=== PATIENT | female | born 1940 | race Caucasian/White ===

== ENCOUNTER 2022-07-30 11:46 | Emergency (ER) | payer MEDICARE, SELFPAY ==
[2022-07-30] VITALS (11 sets, daily range): BP systolic 153–197; BP diastolic 76–88; PULSE 112; RESP 20; TEMP 36.8; O2SAT 96–98; BMI 23.7
--- NOTE | 2022-07-30 11:57 | W.ED.ABDPA2 ---
HPI - Abdominal Pain General: Chief Complaint: Abdominal Pain Stated Complaint: low abd pains Time Seen by Provider: 07/30/22 11:56 Source: patient Mode of arrival: ambulatory History of Present Illness: 81-year-old female presents emergency room. Initially she is complaining of her hernia in the left inguinal region is worse when she stands up better when she lays down. In addition to that she is complaining of some moderate dysuria. After we examined her for the hernia and found it to be easily reducible she also stated she had hives although when she lowered her jeans to show us where the hives were at there were no hives present she said they must of cleared up. She has not had any vomiting or diarrhea her dysuria is mild and intermittent. MD elicited complaint: abdominal pain Onset (ago): day(s) (2) Location: None Severity: mild Quality: cramping Exacerbating factors: nothing Relieving factors: nothing Associated Symptoms: Reports no associated symptoms and dysuria; Denies anorexia, belching, bloating, change in bowel habits, change in stool character, chills, coffee ground emesis, constipation, GI cramping, diarrhea, dyspepsia, excessive flatus, fever(s), heartburn, hematochezia, hematuria, hematemesis, fecal incontinence, loose stools, melena, nausea, poor appetite, syncope and vomiting Review of Systems Const: Denies: fever(s), chills, fatigue or malaise ENMT: Denies: throat pain, ear or mastoid pain, nasal discharge or nasal congestion Card: Denies: chest pain, palpitations, irregular heart rhythm, edema, swelling of feet/ankles or syncope Resp: Denies: dyspnea, productive cough or non-productive cough GI: Reports: abdominal pain; Denies: nausea, vomiting, hematemesis, coffee ground emesis, heartburn, diarrhea, constipation, bloating, GI cramping, belching, excessive flatus, fecal incontinence, change in bowel habits, change in stool character, hematochezia or melena : Reports: dysuria and urinary frequency; Denies: hematuria Skin/Breast: Denies: rash or pruritus Physical Exam Const: GENERAL APPEARANCE: cooperative and comfortable ORIENTATION/CONSCIOUSNESS: Yes awake, Yes oriented to person, Yes oriented to place and Yes oriented to time HENMT: COMMON NORMALS: normocephalic, atraumatic and hearing grossly normal bilaterally HEAD & SCALP: normocephalic and atraumatic Resp: COMMON NORMALS: normal respiratory effort, No retractions, No use of accessory muscles and clear to auscultation bilaterally AUSCULTATION: clear to auscultation bilaterally Cardio: COMMON NORMALS: regular rate, regular rhythm and No murmurs present (Cardio) RATE: regular rate RHYTHM: regular rhythm GI: COMMON NORMALS: Soft to palpation and No hepatosplenomegaly present AUSCULTATION: Yes normoactive bowel sounds PALPATION: Yes Soft to palpation, No Tenderness to palpation present (GI), No Guarding due to palpation present (GI) and Yes No hepatosplenomegaly present OTHER: Inguinal hernia defect on the left. It is palpable but there is no strangulated hernia is a small amount of omental tissue that is easily reduced. Extremity: COMMON NORMALS: normal to inspection, capillary refill normal, no clubbing, cyanosis or edema, no calf tenderness and no pedal edema Neuro: SENSORIUM/ORIENTATION: Yes oriented to person, Yes oriented to place and Yes oriented to time Skin: COMMON NORMALS: no rashes or lesions noted GENERAL SKIN EXAM: no rashes or lesions noted Course Vital Signs: Vital signs: Vital Signs Temperature 98.2 F 07/30/22 11:51 Pulse Rate 112 H 07/30/22 11:51 Respiratory Rate 20 H 07/30/22 11:51 Blood Pressure 153/76 07/30/22 14:30 Pulse Oximetry 96 07/30/22 14:30 Oxygen Delivery Me thod Room Air 07/30/22 11:51 MDM - Abdominal Pain Medical Decision Making Patient does have an inguinal hernia however it is reducible at the bedside and could feel the defect. On the CT it had recurred but we did reduce his earlier completely. She has some hematuria as well although no clear signs of infection. Additionally on the CT she was noted to have diverticulitis. We had originally done the CT concerned because she had a history of left nephrolithiasis on make sure she did not have a recurrent nephrolithiasis. We will treat her with Augmentin which should also cover for cystitis her urine is being cultured. She should follow-up with her doctor within the next 7 to 10 days for repeat urine if hematuria persist she may need further evaluation. At some point in future she should also be referred for her hernia. Return if she has further problems. Lab Data Labs/Radiology: Radiology Impressions Abdomen/Pelvis CT 07/30/22 13:17 IMPRESSION: 1. Marked bladder wall thickening. 2. Enlarged fibroid uterus. 3. Large bowel containing ventral wall hernia in the left anterolateral abdominal wall, extending into the left inguinal region. 4. Gastric wall thickening, which can be better evaluated with endoscopy if clinically indicated. 5. Sigmoid diverticula with infiltration of pericolonic fat, in a pattern of low-grade diverticulitis. 6. Additional findings as described above. Laboratory Results Urine Color Yellow (Yellow) 07/30/22 12:43 Urine Appearance Hazy (CLEAR) A 07/30/22 12:43 Urine pH 6 (5-7) 07/30/22 12:43 Ur Specific [place] 1.010 (1.005-1.030) 07/30/22 12:43 Urine Protein 2+ (Negative) H 07/30/22 12:43 Urine Glucose (UA) 1+ (Normal) H 07/30/22 12:43 Urine Ketones Negative (Negative) 07/30/22 12:43 Urine Blood 2+ (Negative) H 07/30/22 12:43 Urine Nitrate Negative (Negative) 07/30/22 12:43 Urine Bilirubin Neg (Negative) 07/30/22 12:43 Urine Urobilinogen Norm mg/dL (Negative) 07/30/22 12:43 Ur Leukocyte Esterase Negative (Negative) 07/30/22 12:43 Urine RBC 5-10 /hpf (0-2) H 07/30/22 12:43 Urine WBC Rare /hpf (0-5) 07/30/22 12:43 Ur Squamous Epith Cells Rare /hpf (0-5) 07/30/22 12:43 Amorphous Sediment 1+ /hpf 07/30/22 12:43 Urine Bacteria 1+ /hpf (NONE) H 07/30/22 12:43 Hyaline Casts 0-4 /lpf H 07/30/22 12:43 Fine Granular Casts 0-4 /lpf H 07/30/22 12:43 Coarse Granular Casts 0-4 /lpf H 07/30/22 12:43 Urine Mucus 1+ /hpf 07/30/22 12:43 Discharge Plan Discharge Patient Disposition: Home Clinical Impression: Diverticulitis, Hematuria, Hernia, inguinal, left Condition: Stable Prescriptions: New amoxicillin-pot clavulanate 875-125 mg tablet 1 tab PO BID 10 Days Qty: 20 0RF No Action clonidine HCl 0.1 mg tablet 0.1 mg PO BID Aspir-81 81 mg Tablet,Delayed Release (Dr/Ec) 81 mg PO DAILY omeprazole 20 mg capsule,delayed release(DR/EC) 20 mg PO DAILY rosuvastatin 20 mg tablet 20 mg PO QPM Discharge Orders: Discharge ED (Routine); Ordered 07/30/22 Ordered By: Anthony Tanner Referrals: Brea Leroy MD [Primary Care Provider] - Discharge Diet: Full LIquid Discharge Activity: Increase activity as tolerated Patient Instructions: Diverticulitis (ED), Diverticulitis Diet (ED), Opioid Safety, Pain Management Activity Restrictions/Additional Instructions: You are seen today for left-sided groin pain. You have a mild diverticulitis she also blood in your urine. There is a inguinal hernia as well. Recommend that you follow-up with your doctor regarding the hernia. You will first need to be cleared of the diverticulitis. The hematuria may require further investigation your urine should be rechecked after you have completed the course of antibiotics. Return if you have worsening problems. Coding Level of Care Code ED Security Control Assessor for Holly Quick
[2022-07-30 13:02] LABS: Add Urine Microscopic? YES; Bilirubin Urine Neg (Negative); Blood Urine 2+ (Negative); Glucose Urine UA 1+ (Normal); Ketones Urine Negative (Negative); Leukocyte Esterase Urine Negative (Negative); Nitrate Urine Negative (Negative); Protein Urine 2+ (Negative); Urine Appearance Hazy (CLEAR); Urine Color Yellow (Yellow); Urobilinogen Urine Norm (Negative); pH Urine 6 (5-7)
[2022-07-30 13:05] LABS: Bacteria Urine 1+ /hpf; Squamous Epithelial Cell Urine RARE /hpf (0-5); WBC Urine RARE /hpf (0-5)
[2022-07-30 13:06] LABS: Amorphous Sediment Urine 1+ /hpf; Coarse Granular Casts Urine 0-4 /lpf; Fine Granular Casts Urine 0-4 /lpf; Hyaline Casts Urine 0-4 /lpf; Mucus Urine 1+ /hpf
[2022-07-30 13:07] LABS: Add Urine Culture? No
--- NOTE | 2022-07-30 13:17 | CTR_ITS ---
PROCEDURE INFORMATION: Exam: CT Abdomen And Pelvis Without Contrast Exam date and time: 07/30/2022 1:34 PM Age: 81 years old Clinical indication: Abdominal pain; Localized; Left lower quadrant (llq); Patient HX: History of left inguinal hernia x 15 years; Additional info: Flank pain TECHNIQUE: Imaging protocol: Computed tomography of the abdomen and pelvis without contrast. Radiation optimization: All CT scans at this facility use at least one of these dose optimization techniques: automated exposure control; mA and/or kV adjustment per patient size (includes targeted exams where dose is matched to clinical indication); or iterative reconstruction. REPORTING DATA: Count of CT and Cardiac NM exams in prior 12 months: This patient has received 0 known CTs and 0 known cardiac nuclear medicine studies in the 12 months prior to the current study. COMPARISON: No relevant prior studies available. RADIATION DOSE METRICS: Total DLP (mGy-cm): 446.92 FINDINGS: Detailed evaluation of the abdominal and pelvic viscera is somewhat limited in the absence of intravenous contrast. Inferior thorax: Emphysematous change and interstitial prominence. Bilateral fat containing Bochdalek's hernias Liver: Fatty infiltration of the liver. Gallbladder and bile ducts: Unremarkable gallbladder. Pancreas: Punctate pancreatic calcification, without focal mass. Spleen: No splenomegaly. Adrenal glands: Unremarkable adrenals. Kidneys and ureters: Renal vascular calcification. No hydronephrosis. Stomach and bowel: Gastric wall thickening, which can be better evaluated with endoscopy if clinically indicated. Sigmoid diverticula with infiltration of pericolonic fat, in a pattern of low-grade diverticulitis. Prominent stool. Appendix: No acute appendicitis. Intraperitoneal space: No significant free fluid. Vasculature: Prominent vascular calcification. No abdominal aortic aneurysm. Lymph nodes: Subcentimeter lymph nodes. Urinary bladder: Marked bladder wall thickening. Reproductive: Enlarged fibroid uterus. Bones/joints: Multilevel degenerative change and discogenic sclerosis. Chronic L5 compression fracture. Multilevel disc bulging and vacuum discs, with spinal stenosis at the L4-L5 level. Soft tissues: Large bowel containing ventral wall hernia in the left anterolateral abdominal wall, extending into the left inguinal region. CT/CT kidney stone [id number] IMPRESSION: 1. Marked bladder wall thickening. 2. Enlarged fibroid uterus. 3. Large bowel containing ventral wall hernia in the left anterolateral abdominal wall, extending into the left inguinal region. 4. Gastric wall thickening, which can be better evaluated with endoscopy if clinically indicated. 5. Sigmoid diverticula with infiltration of pericolonic fat, in a pattern of low-grade diverticulitis. 6. Additional findings as described above.
== END 2022-07-30 15:07 | disposition home or self-care (01) ==
PROVIDERS: Emergency Provider Family Medicine; PCP Family Medicine
DX: K57.92 Diverticulitis of intestine, part unspecified, without perforation or abscess without bleeding (principal); R31.9 Hematuria, unspecified; K40.90 Unilateral inguinal hernia, without obstruction or gangrene, not specified as recurrent
CPT/HCPCS: 74176; 81001; 99284

== ENCOUNTER 2023-04-19 15:18 | Emergency (ER) | payer MEDICARE, SELFPAY ==
[2023-04-19 15:21] VITALS: BP 215/95; PULSE 74; RESP 18; TEMP 36.9; O2SAT 97; BMI 22.6
--- NOTE | 2023-04-19 15:25 | CTR_ITS ---
PROCEDURE INFORMATION: Exam: CT Abdomen And Pelvis With Contrast Exam date and time: 04/19/2023 5:17 PM Age: 82 years old Clinical indication: Abdominal pain; Generalized; Prior surgery; Surgery date: 6+ months; Surgery type: Hernia, ; additional info: Abd pain TECHNIQUE: Imaging protocol: Computed tomography of the abdomen and pelvis with contrast. Radiation optimization: All CT scans at this facility use at least one of these dose optimization techniques: automated exposure control; mA and/or kV adjustment per patient size (includes targeted exams where dose is matched to clinical indication); or iterative reconstruction. Contrast material: OMNI 350; Contrast volume: 100 ml; Contrast route: INTRAVENOUS (IV); COMPARISON: CT kidney stone [id number] 07/30/2022 1:34 PM RADIATION DOSE METRICS: Total DLP (mGy-cm): 443 FINDINGS: Lungs: Subsegmental bibasilar atelectasis. The visualized lung bases are otherwise grossly clear. Diaphragm: No evidence of diaphragmatic defect. Liver: No focal hepatic lesion. Gallbladder and bile ducts: Unremarkable. No intra-hepatic or extra-hepatic biliary dilatation. Pancreas: Unremarkable. Spleen: Unremarkable. Adrenal glands: Unremarkable. Kidneys and ureters: No renal parenchymal abnormality. No hydronephrosis or ureteral stone. Stomach and bowel: Diverticulosis without evidence of acute diverticulitis. No bowel obstruction or perienteric inflammatory changes. There is a large left lower quadrant ventral abdominal hernia sac measuring approximately 13 cm craniocaudal by 7 cm transverse containing a segment of nonobstructed sigmoid colon. Appendix: Normal appendix. Intraperitoneal space: No evidence of free air or fluid collection. Vasculature: Extensive aortobiiliac atherosclerosis without aneurysmal dilatation or dissection. The celiac trunk, SMA and POLA are grossly patent. No evidence of IVC thrombus. The portal vein, SMV and splenic veins are grossly patent. Lymph nodes: No adenopathy. Urinary bladder: Mild diffuse bladder wall thickening/haziness. Otherwise grossly unremarkable. Reproductive: Calcified uterine fibroids. There is mild laxity of the pelvic floor. Bones/joints: No evidence of acute fracture or aggressive osseous lesion. Disc bulge and ligamentum hypertrophy results in severe L4-L5 central stenosis. Consider correlation with follow-up outpatient MRI if there is clinical concern for neural impingement. Soft tissues: No evidence of fluid collection or hematoma in the superficial soft tissues. CT/CT abdomen pelvis w con* [id number] IMPRESSION: 1. Large left lower quadrant ventral abdominal hernia containing a segment of nonobstructed sigmoid colon. Consider nonemergent surgical evaluation. 2. Possible cystitis.
--- NOTE | 2023-04-19 15:25 | XR_ITS ---
WS: [id number] Portable AP upright chest, 04/19/2023 Clinical Data: dizzy Comparison: None. Findings: No nodules, masses or effusions are seen. The heart is normal. There are minimal patchy opa cities over the surface of both diaphragms which probably represent atelectasis. The pulmonary vascul arity is not increased. No pneumonia or pneumothorax is seen. The aortic arch and descending thoracic aorta show calcification and tortuosity. Impression: 1. Probable minimal bibasilar atelectasis. 2. Atherosclerosis.
--- NOTE | 2023-04-19 15:25 | CTR_ITS ---
PROCEDURE INFORMATION: Exam: CT Head Without Contrast Exam date and time: 04/19/2023 5:14 PM Age: 82 years old Clinical indication: Dizziness TECHNIQUE: Imaging protocol: Computed tomography of the head without contrast. Radiation optimization: All CT scans at this facility use at least one of these dose optimization techniques: automated exposure control; mA and/or kV adjustment per patient size (includes targeted exams where dose is matched to clinical indication); or iterative reconstruction. COMPARISON: No relevant prior studies available. RADIATION DOSE METRICS: Total DLP (mGy-cm): 1238 FINDINGS: Brain: No hemorrhage. No edema. Moderate diffuse cerebral atrophy and mild sequela of chronic small vessel ischemic disease. No mass effect. Cerebral ventricles: No ventriculomegaly. Paranasal sinuses: Visualized sinuses are unremarkable. No fluid levels. Mastoid air cells: Visualized mastoid air cells are well aerated. Bones/joints: Unremarkable. No acute fracture. Soft tissues: Unremarkable. CT/CT head wo con* [id number] IMPRESSION: No acute intracranial abnormality.
--- NOTE | 2023-04-19 15:45 | ECG_ITS ---
[facility] Test Date: 2023-04-19 Pat Name: Anai Hinkle Department: Room: Gender: Female Funds Transfer Clerk: : 1940 Requested By: Ang Garg Order Number: [id number] Kevin MD: Marlo No M.D. Measurements Intervals [place] Rate: 72 P: 66 AR: 166 QRS: 59 QRSD: 86 T: 67 QT: 383 QTc: 421 Interpretive Statements SINUS RHYTHM No previous ECG available for comparison Electronically Signed On 04-19-2023 18:26:19 MENTAL HEALTH AIDE by Marlo No M.D. [id number]
--- NOTE | 2023-04-19 15:57 | W.ED.DIZZY ---
HPI - Dizziness General: Chief Complaint: Dizziness Stated Complaint: Dizziness Time Seen by Provider: 04/19/23 15:19 Source: patient and EMS Mode of arrival: EMS Limitations: no limitations History of Present Illness: HPI Narrative: 82-year-old female states that she is having severe left lower abdominal pain today states the pain got bad made her feel like she is going to pass out and she urinated on herself states she felt extremely lightheaded said that the pain is since improved and so is her lightheadedness she denies any headache denies any slurred speech or focal neurologic deficits. States she had a hernia before the left side that is because pain in the past she is hypertensive as well does have a history of hypertension. Associated symptoms: Denies chest pain, chills, headache(s), nausea or vomiting Review of Systems Const: Denies: fever(s), chills, body aches or change in appetite Eyes: Denies: blurry vision or eye discomfort ENMT: Denies: throat pain or dental pain Card: Reports: pre-syncope; Denies: chest pain Resp: Denies: dyspnea GI: Reports: abdominal pain; Denies: nausea, vomiting or diarrhea Musc: Denies: neck pain or back pain Skin/Breast: Denies: rash Neuro: Reports: dizziness; Denies: headache(s) Physical Exam Const: COMMON NORMALS: no acute distress, patient oriented x3 and healthy appearing HENMT: COMMON NORMALS: normocephalic and atraumatic HEAD & SCALP: normocephalic and atraumatic Neck/C-Spine: COMMON NORMALS: full ROM and supple Chest: COMMONS NORMALS: normal inspection of the chest Resp: COMMON NORMALS: normal respiratory effort, No retractions, No use of accessory muscles and clear to auscultation bilaterally AUSCULTATION: clear to auscultation bilaterally Cardio: COMMON NORMALS: regular rate, regular rhythm and No murmurs present (Cardio) RATE: regular rate RHYTHM: regular rhythm GI: COMMON NORMALS: Normal to inspection, nondistended, normoactive bowel sounds present, Soft to palpation and no masses PALPATION: Yes Soft to palpation and Yes Tenderness to palpation present (GI) Details: LLQ Extremity: COMMON NORMALS: normal to inspection and full ROM Neuro: COMMON NORMALS: patient oriented x3, moves all extremities and no focal motor deficits Psych: COMMON NORMALS: mental status grossly normal, Normal thought process present and cooperative THOUGHT PROCESS: Normal thought process present Skin: COMMON NORMALS: no rashes or lesions noted and no wounds GENERAL SKIN EXAM: no rashes or lesions noted Course Vital Signs: Vital signs: Vital Signs Temperature 98.5 F 04/19/23 15:21 Pulse Rate 74 04/19/23 15:21 Respiratory Rate 18 04/19/23 15:21 Blood Pressure 215/95 04/19/23 15:21 Pulse Oximetry 97 04/19/23 15:21 Oxygen Delivery Me thod Room Air 04/19/23 15:21 MDM - Dizziness Medical Decision Making Patient presents here with abdominal pain she does have an abdominal hernia that is easily reduced no signs of incarceration. Pain likely caused her near syncopal event her blood work and imaging here is all normal she had no signs of stroke she is stable for discharge she is follow-up with PCP and return if worsening. Medical Records I reviewed the patient's medical records. Lab Data I reviewed the patient's lab results. 04/19/23 16:05 04/19/23 16:05 Radiology Impressions Abdomen/Pelvis CT 04/19/23 15:25 IMPRESSION: 1. Large left lower quadrant ventral abdominal hernia containing a segment of nonobstructed sigmoid colon. Consider nonemergent surgical evaluation. 2. Possible cystitis. Head CT 04/19/23 15:25 IMPRESSION: No acute intracranial abnormality. Laboratory Results WBC 7.98 10^3/uL (3.29-11.43) 04/19/23 16:05 RBC 4.13 10^6/uL (3.85-5.65) 04/19/23 16:05 Hgb 13.10 g/dL (11.27-16.99) 04/19/23 16:05 Hct 39.7 % (36-47) 04/19/23 16:05 MCV 96.1 fl (85-98) 04/19/23 16:05 MCH 31.7 pg (27-33) 04/19/23 16:05 MCHC 33.0 g/dL (30-55) 04/19/23 16:05 RDW 12.5 % (12.1-15.1) 04/19/23 16:05 Plt Count 174 10^3/cmm (157-399) 04/19/23 16:05 MPV 10.2 fL (7.4-10.4) 04/19/23 16:05 Neut % (Auto) 70.5 % 04/19/23 16:05 Lymph % (Auto) 20.9 % 04/19/23 16:05 [place] % (Auto) 6.8 % 04/19/23 16:05 Eos % (Auto) 1.0 % 04/19/23 16:05 Baso % (Auto) 0.4 % 04/19/23 16:05 Neut # (Auto) 5.63 10^3/uL (1.8-7.7) 04/19/23 16:05 Lymph # (Auto) 1.7 10^3/uL (0.8-4.8) 04/19/23 16:05 [place]enton # (Auto) 0.5 10^3/uL (0.2-0.9) 04/19/23 16:05 Eos # (Auto) 0.1 10^3/uL (0.0-0.8) 04/19/23 16:05 Baso # (Auto) 0.0 10^3/uL (0.0-0.1) 04/19/23 16:05 Nucleated RBC % (auto) 0 % 04/19/23 16:05 Nucleated RBCs # 0.0 /100WBC 04/19/23 16:05 PT 12.60 SECONDS (12.1-14.9) 04/19/23 16:05 INR 0.91 (0.8-1.2) 04/19/23 16:05 Sodium 138 mmol/L (136-145) 04/19/23 16:05 Potassium 4.3 mmol/L (3.5-5.1) 04/19/23 16:05 Chloride 100 mmol/L (98-107) 04/19/23 16:05 Carbon Dioxide 25 mmol/L (22-29) 04/19/23 16:05 Anion Gap 17.3 (5-19) 04/19/23 16:05 BUN 16 mg/dL (8-23) 04/19/23 16:05 Creatinine 1.1 mg/dL (0.5-0.9) H 04/19/23 16:05 GFR Calculation Not Reportable 04/19/23 16:05 Glucose 125 mg/dL (65-115) H 04/19/23 16:05 Calculated Osmolality 289 mOsm/kg (285-295) 04/19/23 16:05 Calcium 9.4 mg/dL (8.5-10.5) 04/19/23 16:05 Total Bilirubin 0.4 mg/dL (0.15-1.2) 04/19/23 16:05 AST 25 U/L (0-32) 04/19/23 16:05 ALT 12 U/L (0-33) 04/19/23 16:05 Alkaline Phosphatase 62 U/L (35-105) 04/19/23 16:05 Total Protein 6.5 g/dL (6.6-8.7) L 04/19/23 16:05 Albumin 4.2 g/dL (3.5-5.2) 04/19/23 16:05 Globulin 2.3 g/dL (1.3-4.6) 04/19/23 16:05 Lipase 31 U/L (13-60) 04/19/23 16:05 All radiology interpretation(s) finalized by discharge EKG Data EKG 1: I personally reviewed and interpreted this EKG as follows: EKG interpretation date: 04/19/23 EKG interpretation time: 15:45 Interpretation: nsr hr [address] or t wave abnormalities qrs 86 qtc 407 Discharge Plan Discharge Patient Disposition: Home Clinical Impression: Hernia, Near syncope Condition: Stable Prescriptions: No Action clonidine HCl 0.1 mg tablet 0.1 mg PO BID aspirin [Aspir-81] 81 mg Tablet,Delayed Release (Dr/Ec) 81 mg PO QAM omeprazole 20 mg capsule,delayed release(DR/EC) 20 mg PO DAILY rosuvastatin 20 mg tablet 20 mg PO QPM Discharge Orders: Discharge ED (Routine); Ordered 04/19/23 Ordered By: Ang Garg Referrals: Pepito Petty DO [Physician] - 1-3 days Brea Leroy MD [Primary Care Provider] - Discharge Diet: Advance as tolerated Discharge Activity: Resume usual activity Patient Instructions: Near Syncope (ED), Ventral Hernia (ED) Coding Level of Care Code ED Fermentation Manager for Mary Kateg Ynes
[2023-04-19 16:16] LABS: Basophils % 0.4 %; Eosinophils # 0.1 10^3/uL (0.0-0.8); Hematocrit 39.7 % (36-47); Lymphocytes # 1.7 10^3/uL (0.8-4.8); Lymphocytes % 20.9 %; Mean Corpuscular Hemoglobin 31.7 pg (27-33); Mean Corpuscular Volume 96.1 fl (85-98); Mean Platelet Volume 10.2 fL (7.4-10.4); Monocytes # 0.5 10^3/uL (0.2-0.9); Monocytes % 6.8 %; Neutrophils # 5.63 10^3/uL (1.8-7.7); Neutrophils % 70.5 %; Nucleated Red Blood Cells % 0 %; Platelet Count 174 10^3/cmm (157-399); Red Blood Count 4.13 10^6/uL (3.85-5.65); Red Cell Distribution Width 12.5 % (12.1-15.1); White Blood Count 7.98 10^3/uL (3.29-11.43)
[2023-04-19 16:26] LABS: INR 0.91 (0.8-1.2)
[2023-04-19 16:30] LABS: Alanine Aminotransferase 12 U/L (0-33); Albumin Level 4.2 g/dL (3.5-5.2); Alkaline Phosphatase 62 U/L (35-105); Anion Gap 17.3 (5-19); Aspartate Amino Transferase 25 U/L (0-32); Blood Urea Nitrogen 16 mg/dL (8-23); Calcium 9.4 mg/dL (8.5-10.5); Carbon Dioxide 25 mmol/L (22-29); Chloride 100 mmol/L (98-107); Globulin 2.3 g/dL (1.3-4.6); Glucose 125 mg/dL (65-115); Lipase 31 U/L (13-60); Osmolality Calculated 289 mOsm/kg (285-295); Potassium 4.3 mmol/L (3.5-5.1); Sodium 138 mmol/L (136-145); Total Bilirubin 0.4 mg/dL (0.15-1.2); Total Protein 6.5 g/dL (6.6-8.7)
[2023-04-19] MEDS: iohexol 350 mg/mL 500 mL Btl (per mL) IV (17:04)
--- NOTE | 2023-04-20 08:15 | DCPLANNER ---
Message was sent to general surgery on 04/20/23 at 0815. Clinic to contact patient.
== END 2023-04-19 18:58 | disposition home or self-care (01) ==
PROVIDERS: Emergency Provider Emergency Medicine; PCP Family Medicine
DX: R55 Syncope and collapse (principal); K43.9 Ventral hernia without obstruction or gangrene; Z79.82 Long term (current) use of aspirin
CPT/HCPCS: 70450; 71045; 74177; 80053; 83690; 85025; 85610; 93005; 99285; Q9967

== ENCOUNTER → 2023-05-03 08:51 | Outpatient (BNVA) | payer MEDICARE, SELFPAY | PROVIDERS: PCP Family Medicine; Referring Provider Emergency Medicine; Visit Provider Surgery | DX: K46.9 Unspecified abdominal hernia without obstruction or gangrene (principal) | CPT/HCPCS: 99204 ==

== ENCOUNTER 2024-01-17 09:52 | Inpatient (IN) | payer MEDICARE, SELFPAY ==
[2024-01-17] VITALS (96 sets, daily range): BP systolic 112–222; BP diastolic 45–104; PULSE 65–119; RESP 9–40; TEMP 36.7–36.8; O2SAT 83–100; BMI 22.7
--- NOTE | 2024-01-17 09:53 | ECG_ITS ---
[facility] Test Date: 2024-01-17 Pat Name: Anai Hinkle Department: Room: Gender: Female Adult Education Professional: : 1940 Requested By: Anthony Medina Order Number: [id number] Kevin MD: Margaret Ritchie M.D. Measurements Intervals [place] Rate: 86 P: 73 [place]: 167 QRS: 71 QRSD: 84 T: 28 QT: 362 QTc: 433 Interpretive Statements SINUS RHYTHM WITH FREQUENT VENTRICULAR PREMATURE COMPLEXES IN A BIGEMINAL PATTERN ST ELEVATION, Possible anterolateral infarct Significant ST depression, due to ischemia Compared to ECG 04/19/2023 15:45:11 Ventricular premature complex(es) now present ST (T wave) deviation now present Early repolarization now present Electronically Signed On 01-17-2024 16:56:38 CDT by Margaret Ritchie M.D. [id number]
--- NOTE | 2024-01-17 10:09 | XRR_ITS ---
PROCEDURE INFORMATION: Exam: XR Right Scapula Exam date and time: 01/17/2024 10:16 AM Age: 83 years old Clinical indication: Injury or trauma; Fall; Blunt trauma (contusions or hematomas); Shoulder; Right TECHNIQUE: Imaging protocol: Radiologic exam of the right scapula. Complete exam. COMPARISON: CR XR chest 1V portable [id number] 01/17/2024 10:14 AM FINDINGS: Bones/joints: No definite fracture or dislocation is appreciated bony mineralization is decreased. Soft tissues: Normal. XR/[place] [id number] IMPRESSION: 1. No definite fracture is identified. If there is a strong clinical concern, CT may add additional information.
--- NOTE | 2024-01-17 10:10 | XRR_ITS ---
PROCEDURE INFORMATION: Exam: XR Chest Exam date and time: 01/17/2024 10:14 AM Age: 83 years old Clinical indication: Injury or trauma; Fall; Blunt trauma (contusions or hematomas); Additional info: Trauma/chest pain TECHNIQUE: Imaging protocol: Radiologic exam of the chest. Views: 1 view. COMPARISON: CR XR chest 1V portable [id number] 04/19/2023 3:30 PM FINDINGS: Lungs: Unremarkable. No consolidation. Pleural spaces: There is minimal blunting of the costophrenic angles which may be related to small pleural effusions or pleural thickening. Heart/Mediastinum: Heart size is normal. There is calcified plaque involving the aorta. Bones/joints: There is an S shaped curvature to the thoracolumbar spine. XR/XR chest 1V portable [id number] IMPRESSION: 1. Minimal blunting of the costophrenic angles unchanged when compared to prior exam.
--- NOTE | 2024-01-17 10:11 | ED_ITS ---
HPI - Chest Pain 2 General: Chief Complaint: Chest Pain Stated Complaint: STEMI Time Seen by Provider: 01/17/24 10:09 History of Present Illness: 83-year-old female presents to the emerg ency room via EMS as a STEMI alert there is reported that the patient had a rate in the 40s at 1 point also reported that she was in V. tach. Reviewing the rhythm strips looks like she was in bigeminy which also accounts for the perception of ST elevation. She did not have any SVT or A-fib. She has no chest discomfort at this time she is complaining of some right shoulder pain. Patient had been trying to move a garbage can had a ground-level mechanical fall and fell onto her right side which was when the shoulder pain began. She has no known history of coronary disease no history of any arrhythmias. She is not on any anticoagulants but does take aspirin daily. She does have a history of hypertension for which she is on clonidine. Initial EKG shows persistent bigeminy without ST elevation. Dr. Keita was present in the exam room shortly after patient arrived and canceled the STEMI. He recommends routine cardiac workup Associated symptoms: Reports palpitations; Deny abdominal pain, dyspnea or fever(s) Related Data Home Medications Medication Instructions Recorded Confirmed aspirin 81 mg tablet,delayed 81 mg PO QAM 07/30/22 01/17/24 release clonidine HCl 0.1 mg tablet 0.1 mg PO BID 07/30/22 01/17/24 omeprazole 20 mg capsule,delayed 20 mg PO DAILY 07/30/22 01/17/24 release fish oil-dha-epa 1,200 mg-144 1 cap PO DAILY 05/03/23 01/17/24 mg-216 mg capsule multivitamin 1 tab PO DAILY 05/03/23 01/17/24 rosuvastatin 20 mg tablet 20 mg PO DAILY 01/17/24 01/17/24 Allergies Allergy/AdvReac Type Severity Reaction Status Date / Time amlodipine Allergy cant Verified 01/17/24 10:43 remember reaction amoxicillin Allergy ADR-Diarrhe Verified 01/17/24 10:43 a ciprofloxacin Allergy ADR-Diarrhe Verified 01/17/24 10:43 a clindamycin Allergy ADR-Abdominal Verified 01/17/24 10:43 Pain hydrochlorothiazide Allergy ADR-Dizzine Verified 01/17/24 10:43 ss lisinopril Allergy Unknown Verified 01/17/24 10:43 metronidazole Allergy ADR-Abdominal Verified 01/17/24 10:43 Pain rivaroxaban [From Xarelto] Allergy Unknown Verified 01/17/24 10:43 Review of Systems 2 Const: Denies: fever(s) or chills Card: Reports: palpitations and irregular heart rhythm; Denies: chest pain Resp: Denies: dyspnea GI: Denies: abdominal pain : Denies: dysuria, urinary frequency or urinary urgency Musc: Reports: back pain (Right scapula); Denies: neck pain Skin/Breast: Denies: rash PFSH ED 2 PFSH: Family History Father Cancer Hodkins disease Mother Hypertension Social History Smoking and tobacco/nicotine status: current every day tobacco/nicotine user cigarettes Alcohol intake: never Physical Exam 2 Const: GENERAL APPEARANCE: cooperative ORIENTATION/CONSCIOUSNESS: Yes awake, Yes oriented to person, Yes oriented to place and Yes oriented to time HENMT: COMMON NORMALS: normocephalic, atraumatic and hearing grossly normal bilaterally HEAD & SCALP: normocephalic and atraumatic Resp: COMMON NORMALS: normal respiratory effort, No retractions, No use of accessory muscles and clear to auscultation bilaterally AUSCULTATION: clear to auscultation bilaterally Cardio: COMMON NORMALS: regular rate, regular rhythm and No murmurs present (Cardio) RATE: regular rate RHYTHM: regular rhythm GI: COMMON NORMALS: Soft to palpation and No hepatosplenomegaly present A USCULTATION: Yes normoactive bowel sounds PALPATION: Yes Soft to palpation, No Tenderness to palpation present (GI), No Guarding due to palpation present (GI) and Yes No hepatosplenomegaly present Extremity: COMMON NORMALS: normal to inspection, capillary refill normal, no clubbing, cyanosis or edema, no calf tenderness and no pedal edema Neuro: SENSORIUM/ORIENTATION: Yes oriented to person, Yes oriented to place and Yes oriented to time Skin: COMMON NORMALS: no rashes or lesions noted GENERAL SKIN EXAM: no rashes or lesions noted Course 2 Vital Signs: Vital signs: Vital Signs Temperature 98.1 F 01/17/24 09:59 Pulse Rate 86 01/17/24 12:15 Respiratory Rate 15 01/17/24 12:15 Blood Pressure 123/78 01/17/24 12:15 Pulse Oximetry 97 01/17/24 12:15 Oxygen Delivery Me thod Room Air 01/17/24 12:15 MDM - Chest Pain Medical Decision Making No chest pain on arrival patient has bigeminy on arrival bigeminy gives the appearance of ST elevation she is not having any chest pain there was concern that she had a run of SVT and some bradycardia although reviewing the strips from EMS we did not see that. She did hit her head CT of her head is negative She also complaining of some right scapular pain which was negative on x-ray as well. Discussed with Dr. Keita STEMI alert was canceled by him we will start her place her on observation. Per Dr. Keita's recommendation stat echo was ordered. Lab Data 01/17/24 10:10 01/17/24 10:10 Radiology Impressions Scapula X-Ray 01/17/24 10:09 IMPRESSION: 1. No definite fracture is identified. If there is a strong clinical concern, CT may add additional information. Chest X-Ray 01/17/24 10:10 IMPRESSION: 1. Minimal blunting of the costophrenic angles unchanged when compared to prior exam. Head CT 01/17/24 10:50 IMPRESSION: 1. No acute intracranial hemorrhage or edema. 2. Mild age-related atrophy and small vessel disease. No acute infarct. 3. Small RIGHT frontal scalp hematoma and laceration. Laboratory Results WBC 7.27 10^3/uL (3.29-11.43) 01/17/24 10:10 RBC 4.49 10^6/uL (3.85-5.65) 01/17/24 10:10 Hgb 13.90 g/dL (11.27-16.99) 01/17/24 10:10 Hct 43.7 % (36-47) 01/17/24 10:10 MCV 97.3 fl (85-98) 01/17/24 10:10 MCH 31.0 pg (27-33) 01/17/24 10:10 MCHC 31.8 g/dL (30-55) 01/17/24 10:10 RDW 12.6 % (12.1-15.1) 01/17/24 10:10 Plt Count 185 10^3/cmm (157-399) 01/17/24 10:10 MPV 10.6 fL (7.4-10.4) H 01/17/24 10:10 Neut % (Auto) 58.8 % 01/17/24 10:10 Lymph % (Auto) 29.0 % 01/17/24 10:10 [place] % (Auto) 8.4 % 01/17/24 10:10 Eos % (Auto) 2.9 % 01/17/24 10:10 Baso % (Auto) 0.6 % 01/17/24 10:10 Neut # (Auto) 4.28 10^3/uL (1.8-7.7) 01/17/24 10:10 Lymph # (Auto) 2.1 10^3/uL (0.8-4.8) 01/17/24 10:10 [place] # (Auto) 0.6 10^3/uL (0.2-0.9) 01/17/24 10:10 Eos # (Auto) 0.2 10^3/uL (0.0-0.8) 01/17/24 10:10 Baso # (Auto) 0.0 10^3/uL (0.0-0.1) 01/17/24 10:10 Nucleated RBC % (auto) 0 % 01/17/24 10:10 Nucleated RBCs # 0.0 /100WBC 01/17/24 10:10 Sodium 140 mmol/L (136-145) 01/17/24 10:10 Chloride 103 mmol/L (98-107) 01/17/24 10:10 Carbon Dioxide 25 mmol/L (22-29) 01/17/24 10:10 BUN 15 mg/dL (8-23) 01/17/24 10:10 Creatinine 0.9 mg/dL (0.5-0.9) 01/17/24 10:10 GFR Calculation Not Reportable 01/17/24 10:10 Glucose 115 mg/dL (65-115) 01/17/24 10:10 Calculated Osmolality 292 mOsm/kg (285-295) 01/17/24 10:10 Calcium 8.6 mg/dL (8.5-10.5) 01/17/24 10:10 Total Bilirubin 0.6 mg/dL (0.15-1.2) 01/17/24 10:10 AST 30 U/L (0-32) 01/17/24 10:10 ALT 14 U/L (0-33) 01/17/24 10:10 Alkaline Phosphatase 62 U/L (35-105) 01/17/24 10:10 Troponin T Baseline 59 ng/L (0-10) H 01/17/24 10:10 Total Protein 7.0 g/dL (6.6-8.7) 01/17/24 10:10 Albumin 4.2 g/dL (3.5-5.2) 01/17/24 10:10 Globulin 2.8 g/dL (1.3-4.6) 01/17/24 10:10 All radiology interpretation(s) finalized by discharge Discharge Plan Discharge Patient Disposition: Admitted As Inpatient Clinical Impression: Chest pain, Ventricular bigeminy Condition: Stable Prescriptions: No Action multivitamin Tablet 1 tab PO DAILY fish oil-dha-epa 1,200-144-216 mg capsule 1 cap PO DAILY clonidine HCl 0.1 mg tablet 0.1 mg PO BID aspirin [Aspir-81] 81 mg Tablet,Delayed Release (Dr/Ec) 81 mg PO QAM omeprazole 20 mg capsule,delayed release(DR/EC) 20 mg PO DAILY rosuvastatin 20 mg tablet 20 mg PO DAILY Referrals: Brea Leroy MD [Primary Care Provider] - Coding Level of Care Code ED Publication Director for Holly Quick
[2024-01-17 10:24] LABS: Basophils % 0.6 %; Eosinophils # 0.2 10^3/uL (0.0-0.8); Eosinophils % 2.9 %; Hematocrit 43.7 % (36-47); Lymphocytes # 2.1 10^3/uL (0.8-4.8); Mean Corpuscular HGB Conc 31.8 g/dL (30-55); Mean Corpuscular Volume 97.3 fl (85-98); Mean Platelet Volume 10.6 fL (7.4-10.4); Monocytes # 0.6 10^3/uL (0.2-0.9); Monocytes % 8.4 %; Neutrophils # 4.28 10^3/uL (1.8-7.7); Neutrophils % 58.8 %; Nucleated Red Blood Cells % 0 %; Platelet Count 185 10^3/cmm (157-399); Red Blood Count 4.49 10^6/uL (3.85-5.65); Red Cell Distribution Width 12.6 % (12.1-15.1); White Blood Count 7.27 10^3/uL (3.29-11.43)
[2024-01-17 10:43] LABS: Alanine Aminotransferase 14 U/L (0-33); Albumin Level 4.2 g/dL (3.5-5.2); Alkaline Phosphatase 62 U/L (35-105); Aspartate Amino Transferase 30 U/L (0-32); Blood Urea Nitrogen 15 mg/dL (8-23); Calcium 8.6 mg/dL (8.5-10.5); Carbon Dioxide 25 mmol/L (22-29); Chloride 103 mmol/L (98-107); Creatinine Clr Calc Pharmacy 45.7305; Globulin 2.8 g/dL (1.3-4.6); Glucose 115 mg/dL (65-115); Osmolality Calculated 292 mOsm/kg (285-295); Sodium 140 mmol/L (136-145); Total Bilirubin 0.6 mg/dL (0.15-1.2)
[2024-01-17 10:45] LABS: Troponin(5th) Baseline 59 ng/L (0-10)
[2024-01-17] MEDS: aspirin 81 mg Chew Tablet 324 MG PO (10:50)
--- NOTE | 2024-01-17 10:50 | CT_ITS ---
WS: [id number] CT HEAD NONCONTRAST HISTORY: elevated BP, fall TECHNIQUE: Contiguous axial imaging performed through the brain. Bone and soft tissue windows. Sagitt al and coronal reformats reviewed. All CT scans at [facility] use at least one of these dose optimization techniques: automated exposure control; mA and/or kV adjustment per patient size (includ es targeted exams where dose is matched to clinical indication); or iterative reconstruction. DLP: 1094.44 mGy.cm COMPARISON: 04/19/2023 No acute intracranial hemorrhage, midline shift or mass effect. Minimal age-related atrophy and small vessel disease. No prior large territory infarct. Ventricles: Normal size with no hydrocephalus. No inferior displacement of the cerebellar tonsils. Paranasal sinuses: As visualized are clear. Mastoid air cells: Well pneumatized. Small amount of cerumen in the external auditory canals. Calvarium and scalp: No skull fracture. Small RIGHT frontal scalp laceration and hematoma. CT/CT head wo con* [id number] IMPRESSION: 1. No acute intracranial hemorrhage or edema. 2. Mild age-related atrophy and small vessel disease. No acute infarct. 3. Small RIGHT frontal scalp hematoma and laceration.
[2024-01-17] MEDS: hyDRALAzine 20 mg/mL INJ 1 mL IVP (11:02)
--- NOTE | 2024-01-17 11:32 | USCV_ITS ---
Anai Hinkle Age: 83 Gender: F : 1940 Exam Date: 01/17/2024 13:37 Ordering Phys: Anthony Tanner DO Technologist: [place] [facility] [place]: mi BP: 130 / 70 HR: 266 Rhythm: Sinus Technical Quality: Adequate MEASUREMENTS (Male / Female) Normal Values 2D ECHO LVOT Diameter 2.1 cm LV Ejection Fraction MOD 4C 60.3 % LV Ejection Fraction MOD 2C 59.9 % LV Ejection Fraction 2C AL 61.6 % LA Diameter 3.1 cm Aorta at Sinotubular Diameter 3.2 cm IVC Diameter 2.2 cm M-MODE LA Ao Ratio MM 1.1 AV Cusp Separation MM 2.3 cm DOPPLER AV Peak Velocity 137.0 cm/s LVOT Peak Velocity 45.0 cm/s AV Area Cont Eq vti 1.8 cm squared AV Area Cont Eq pk 1.1 cm squared MV Area PHT 7.3 cm squared Mitral E to A Ratio 0.8 PV Peak Velocity 110.7 cm/s FINDINGS Left Ventricle Minimally reduced systolic function. There is hypokinesis of mid distal anteroseptal wall segments. Estimated LVEF is 55%. Right Ventricle Normal right ventricular size and systolic function. Right Atrium Normal right atrial size. Left Atrium Normal left atrial size. Mitral Valve Mildly thickened mitral valve. Trace mitral valve regurgitation. Aortic Valve Thickened aortic valve. No aortic valve stenosis. Tricuspid Valve Structurally normal tricuspid valve. No tricuspid valve regurgitation. Pulmonic Valve Structurally normal pulmonic valve. Trace pulmonary valve regurgitation. Pericardium No pericardial effusion. Aorta Normal size aortic root and proximal ascending aorta. IVC Normal inferior vena cava. CONCLUSIONS Mildly reduced LV systolic function LVEF 50 to 55%. Mid-distal anteroseptal wall hypokinesis. No significant valvular abnormalities noted. Margaret Ritchie MD (Electronically Signed) Final Date: 17 January 2024 15:44 S
--- NOTE | 2024-01-17 12:10 | ECG_ITS ---
[facility] Test Date: 2024-01-17 Pat Name: Anai Hinkle Department: Room: Gender: Female Assistant Finance Manager: : 1940 Requested By: Anthony Medina Order Number: [id number] Kevin MD: Margaret Ritchie M.D. Measurements Intervals [place] Rate: 65 P: 69 NE: 164 QRS: 76 QRSD: 89 T: 83 QT: 410 QTc: 427 Interpretive Statements SINUS RHYTHM MODERATE ST DEPRESSION [0.05+ mV ST DEPRESSION] Compared to ECG 01/17/2024 09:53:15 Ventricular premature complex(es) no longer present Early repolarization no longer present ST (T wave) deviation still present Electronically Signed On 01-17-2024 17:12:23 CDT by Margaret Ritchie M.D. [id number]
[2024-01-17 12:30] LABS: Anion Gap 15.9 (5-19); Potassium 3.9 mmol/L (3.5-5.1)
[2024-01-17] MEDS: ondansetron 2 mg/ML SDV 2 mL 4 MG IVP (12:57)
--- NOTE | 2024-01-17 12:59 | ECG_ITS ---
[facility] Test Date: 2024-01-17 Pat Name: Anai Hinkle Department: Room: Gender: Female Restaurant Lead: : 1940 Requested By: Anthony Medina Order Number: [id number] Kevin MD: Margaret Ritchie M.D. Measurements Intervals [place] Rate: 101 P: 73 WV: 167 QRS: 76 QRSD: 83 T: 87 QT: 353 QTc: 459 Interpretive Statements SINUS TACHYCARDIA POSSIBLE LEFT ATRIAL ENLARGEMENT [-0.1mV P-WAVE IN V1/V2] SEPTAL MYOCARDIAL INFARCTION , PROBABLY RECENT [40+ ms Q WAVE IN V1/V2] ACUTE IN Compared to ECG 01/17/2024 11:56:58 Myocardial infarct finding now present Electronically Signed On 01-17-2024 18:07:10 CDT by Margaret Ritchie M.D. [id number]
[2024-01-17 13:07] LABS: Estmated Average Glucose 117; Hemoglobin A1C 5.7 % (4.0-6.0)
[2024-01-17 13:16] LABS: Creatine Phosphokinase 199 U/L (26-192); Thyroid Stimulating Hormone 1.37 uIU/mL (0.27-4.20)
[2024-01-17 13:19] LABS: Troponin 5 2HR 725.6 ng/L (0-10); Troponin 5 2HR Delta 666.6 ABS# (0-10)
[2024-01-17 13:24] LABS: Bilirubin Urine Negative (Negative); Blood Urine Negative (Negative); Glucose Urine UA Negative (Normal); Ketones Urine Negative (Negative); Leukocyte Esterase Urine Negative (Negative); Nitrate Urine Negative (Negative); Protein Urine Trace (Negative); Specific Gravity, Urine 1.008 (1.005-1.030); Urine Appearance Clear (CLEAR); Urine Color Yellow (Yellow); Urobilinogen Urine 0.2 mg/dL (Negative); pH Urine 7.5 (5-7)
[2024-01-17 13:29] LABS: Amphetamines Screen Urine Negative (Negative); Barbiturates Screen Urine Negative (Negative); Benzodiazepines Screen Urine Negative (Negative); Cocaine Screen Urine Negative (Negative); Opiate Screen Urine Negative (Negative); PCP Screen Urine Negative (Negative); THC Screen Urine Negative (Negative)
[2024-01-17 13:46] LABS: UA Manual Slide Review YES; UA Slide Review UA Slide Review Perf
[2024-01-17 13:48] LABS: Add Urine Microscopic? YES; Amorphous Sediment Urine TRACE /hpf; Fine Granular Casts Urine 0-4 /lpf; Mucus Urine TRACE /hpf; RBC Urine 0-4 /hpf (0-2); Squamous Epithelial Cell Urine 0-4 /hpf (0-5); Transitional Epi Cells Urine 0-4 /hpf; WBC Urine 0-4 /hpf (0-5)
[2024-01-17 13:49] LABS: Add Urine Culture? No
[2024-01-17] MEDS: heparin 5,000 unit/mL INJ 1 mL IVP (13:50)
[2024-01-17] MEDS: heparin drip 25,000 UNIT/500 ML PREMIX 18 UNIT IV (13:52)
[2024-01-17 14:01] LABS: Basophils % 0.2 %; Eosinophils % 0.1 %; Hematocrit 41.3 % (36-47); Lymphocytes # 1.2 10^3/uL (0.8-4.8); Lymphocytes % 7.6 %; Mean Corpuscular HGB Conc 32.4 g/dL (30-55); Mean Corpuscular Hemoglobin 31.2 pg (27-33); Mean Corpuscular Volume 96.3 fl (85-98); Mean Platelet Volume 10.4 fL (7.4-10.4); Monocytes # 0.7 10^3/uL (0.2-0.9); Monocytes % 4.3 %; Neutrophils # 14.18 10^3/uL (1.8-7.7); Neutrophils % 87.4 %; Nucleated Red Blood Cells % 0 %; Platelet Count 188 10^3/cmm (157-399); Red Blood Count 4.29 10^6/uL (3.85-5.65); Red Cell Distribution Width 12.7 % (12.1-15.1); White Blood Count 16.23 10^3/uL (3.29-11.43)
--- NOTE | 2024-01-17 14:11 | P.HP_ITS ---
Providers/Chief Complaint 2 Admitting Physician: Kenney Fonseca MD Primary Care Provider: Brea Leroy MD Chief Complaint: STEMI History of Present Illness Anai Hinkle is a 83 year old female with a past medical history of smoking, chronic back pain, hyperlipidemia, GERD, who presents to [facility] for a fall. Patient tells me that this morning, she was pushing her green trash can, it was a plastic trash can empty, when it fell over on its side, and she fell over the green trash can landing on her right side, she hit her right head against the ground, and her right shoulder immediately had pain in those locations. Denies any significant hip pain, no headache, blurry vision, no nausea, no vomiting, did have shoulder pain, pain with range of motion, denies losing any consciousness, no preceding chest pain or shortness of breath or strokelike symptoms or seizure-like symptoms. EMS was called, upon arrival, patient was have found to have findings concerning for STEMI, heart rates in the 40s, reported that she was in V. tach, STEMI alert was called. Upon arrival, EKG was reviewed by cardiology, STEMI was canceled. Patient's delta troponin is 580, repeat EKG shows subtle ST elevations V1 V2, ER provider spoke to Dr. Dalal, patient was started on aspirin, Plavix, heparin. Patient had declined cath offer from Dr. Dalal. Patient tells me that she does not have any chest pain currently, when I initially had entered the room she was reading a piece of paper with her glasses was quite comfortable. She denies a cardiovascular history, she did have a stress test over 30 years ago which was within normal limits. She tells me that typically she will develop back pain she has chronic back pain, and this back pain will radiate to the chest, and she will start to develop chest pain, however she has not had this pain in a while. She currently denies any recent history of chest pain. He tells me that she actually mowed and mulched her yard yesterday without any difficulty, no chest pain or shortness of breath or syncope or presyncope reported with exertion. Denies any recent sickness or illness. She does report that she has been stressed recently, her has severe osteoarthritis and depends on her for his activities of daily living, this has been a significant stressor on her. I discussed with her her concerning EKG changes, and her elevated troponins. I had a detailed discussion with her about what her EKG changes meant and her elevated troponins meant, were worried about the heart, were worried that she is having a cardiovascular event, given the trajectory of her troponin, her EKG changes. Her hesitancy is about the angiogram, we discussed the risks and benefits of an angiogram, she is worried about the complications such as renal failure, risk of heart attack, risk of stroke. We discussed that certainly given her age the risks are higher, but most patients tolerate coronary angiography. But that does not mean that there is no risk. In her own words, she would rather of a heart attack then go through that testing , she tells me that she just does not want to go through that procedure currently. Discussed morbidity and mortality, she voiced understanding, all questions answered, shared decision making, she tells me that she wants to us to continue medical interventions for now, she is going to think on the angiogram, but for now she declines. I also had a detailed discussion with her about her CODE STATUS, I went through multiple scenarios with her after detailed discussion, she would like to be a DNR/DNI, she does not want to have aggressive interventions, does not want to be kept on life support for any reason, does not want shocking, does not want CPR, does not want to be intubated does not want to have aggressive interventions. Review of Systems 2 Const: Denies: fever(s) or chills Card: Denies: chest pain or palpitations Resp: Denies: dyspnea GI: Denies: abdominal pain : Denies: flank pain or difficulty voiding Musc: Reports: joint pain Neuro: Denies: headache(s) or numbness in extremities Medications/Allergies Home Medications Medication Instructions Recorded Confirmed Last Taken Type aspirin 81 mg tablet,delayed 81 mg PO QAM 07/30/22 01/17/24 01/17/24 History release clonidine HCl 0.1 mg tablet 0.1 mg PO BID 07/30/22 01/17/24 01/17/24 History omeprazole 20 mg capsule,delayed 20 mg PO DAILY 07/30/22 01/17/24 01/16/24 History release fish oil-dha-epa 1,200 mg-144 1 cap PO DAILY 05/03/23 01/17/24 Unknown History mg-216 mg capsule multivitamin 1 tab PO DAILY 05/03/23 01/17/24 Unknown History rosuvastatin 20 mg tablet 20 mg PO DAILY 01/17/24 01/17/24 01/17/24 History Allergies Allergy/AdvReac Type Severity Reaction Status Date / Time amlodipine Allergy cant Verified 01/17/24 10:43 remember reaction amoxicillin Allergy ADR-Diarrhe Verified 01/17/24 10:43 a ciprofloxacin Allergy ADR-Diarrhe Verified 01/17/24 10:43 a clindamycin Allergy ADR-Abdominal Verified 01/17/24 10:43 Pain hydrochlorothiazide Allergy ADR-Dizzine Verified 01/17/24 10:43 ss lisinopril Allergy Unknown Verified 01/17/24 10:43 metronidazole Allergy ADR-Abdominal Verified 01/17/24 10:43 Pain rivaroxaban [From Xarelto] Allergy Unknown Verified 01/17/24 10:43 PFSH Acute 2 PFSH: Medical History (Updated 01/17/24 @ 14:30 by Kenney Fonseca MD) History of gastroesophageal reflux (GERD) History of hyperlipidemia Surgical History (Updated 01/17/24 @ 14:26 by Kenney Fonseca MD) Hx of colonoscopy with polypectomy Family History Father Cancer Hodkins disease Mother Hypertension Social History (Updated 01/17/24 @ 14:26 by Kenney Fonseca MD) Smoking and tobacco/nicotine status: current every day tobacco/nicotine user cigarettes Alcohol intake: never Substance/Drug Use: never Vitals/I&O/Wt Last Vital Signs Temp 98.1 F 01/17/24 09:59 Pulse 101 H 01/17/24 14:05 Resp 17 01/17/24 14:05 BP 157/66 01/17/24 14:00 Pulse Ox 97 01/17/24 14:05 O2 Del Method Room Air 01/17/24 12:15 Weight last 48 hrs Weight 63.957 kg Physical Exam 2 Const: COMMON NORMALS: no acute distress and patient oriented x3 OTHER: Bruising, right mandaeism HENMT: COMMON NORMALS: normocephalic Eye: COMMON NORMALS: Equal, round and reactive pupils present Neck/C-Spine: COMMON NORMALS: full ROM Lymph: LYMPHATIC: no lymphadenopathy noted Resp: COMMON NORMALS: normal respiratory effort, No retractions, No use of accessory muscles and clear to auscultation bilaterally AUSCULTATION: clear to auscultation bilaterally Cardio: COMMON NORMALS: no JVD, regular rate, regular rhythm, S1 normal heart sound present and S2 normal heart sound present RATE: regular rate RHYTHM: regular rhythm HEART SOUNDS: S1 normal heart sound present and S2 normal heart sound present GI: COMMON NORMALS: Normal to inspection, nondistended, normoactive bowel sounds present, Soft to palpation and non-tender Extremity: COMMON NORMALS: no pedal edema NARRATIVE EXTREMITY EXAM: On examination right shoulder pain, pain on palpation, Neuro: COMMON NORMALS: patient oriented x3, CN's II-XII intact bilaterally and moves all extremities Psych: COMMON NORMALS: mental status grossly normal Data 01/17/24 13:48 01/17/24 10:10 A&P Assessment and plan (1) STEMI (ST elevation myocardial infarction): (2) Fall: Plan STEMI -Most recent EKG showed ST elevations in V1, V2 with ST depressions in 2 3 aVF -Baseline troponin 59, 120-minute and 25.6, delta of 666.6 -Currently getting stat bedside echo ? Patient is asymptomatic, does not report any chest pain, resting comfortably, blood pressure 157/66 pulse is 10 1 normal sinus rhythm, temperature 90.1, 97% on room air -Smoker Plan -Await cardiac echocardiogram results -Heparin drip -Aspirin -Statin -Beta-mariam -Plavix load followed by Plavix -Serial EKGs, serial troponins, telemetry monitoring -Monitor for chest pain ? After detailed discussion patient has declined coronary angiography for now, but will think on it ? In her own words she rather she rather of a heart attack then undergo any coronary angiogram ? Does report recent stressors, her is sick, and she is taking care of him, and it has been stressful on her ? DNR/DNI confirmed with patient multiple times does not want to have aggressive interventions, does not want CPR does not want shock, does not want to be put on life support for any period of time Fall Head CT CT/CT head wo con* [id number] IMPRESSION: 1. No acute intracranial hemorrhage or edema. 2. Mild age-related atrophy and small vessel disease. No acute infarct. 3. Small RIGHT frontal scalp hematoma and laceration. right shoulder scapula XR/[place] [id number] IMPRESSION: 1. No definite fracture is identified. If there is a strong clinical concern, CT may add additional information Spoke to patient in detail spent over 55 minutes with the patient, with STEMI, critical diagnoses, spoke to echocardiogram pipe tester as it was being done at bedside, spoke to ER physician multiple times Attestations 2 Medical Necessity Statement*: Patient requires hospitalization, inpatient, greater than 2 midnights, ICU, for STEMI Coding Level of Care Code Critical Care >/= 30 minutes Critical care time (in minutes): 55 The high probability of a clinically significant, sudden or life threatening deterioration, as referenced in this documentation, required my full and direct attention, intervention and personal management. The critical care time shown is in addition to time spent performing any reported separately billable procedures and includes the following: [x] Data and vital sign review and interpretation [x ] Patient assessment, examination and intervention [x] Medication orders and management [x] Patient/Family updates as able [x] Care Coordination and Documentation. Diagnoses STEMI (ST elevation myocardial infarction) I21.3 Fall W19.XXXA
[2024-01-17 14:24] LABS: Alanine Aminotransferase 16 U/L (0-33); Albumin Level 4.2 g/dL (3.5-5.2); Alkaline Phosphatase 60 U/L (35-105); Anion Gap 16.9 (5-19); Aspartate Amino Transferase 51 U/L (0-32); Blood Urea Nitrogen 15 mg/dL (8-23); Calcium 8.9 mg/dL (8.5-10.5); Carbon Dioxide 25 mmol/L (22-29); Chloride 102 mmol/L (98-107); Creatinine Clr Calc Pharmacy 41.1575; Globulin 2.7 g/dL (1.3-4.6); Glucose 108 mg/dL (65-115); Osmolality Calculated 291 mOsm/kg (285-295); Potassium 3.9 mmol/L (3.5-5.1); Sodium 140 mmol/L (136-145); Total Bilirubin 0.5 mg/dL (0.15-1.2); Total Protein 6.9 g/dL (6.6-8.7)
[2024-01-17 14:26] LABS: INR 0.94 (0.8-1.2)
[2024-01-17 14:27] LABS: Partial Thromboplastin Time 26.6 SECONDS (23.9-36.7)
[2024-01-17] MEDS: pantoprazole 40 mg SDV IVP (15:27)
[2024-01-17] MEDS: clopidogrel 300 mg Tablet 600 MG PO (15:27)
[2024-01-17] MEDS: metoprolol tartrate 25 mg Tablet 12.5 MG PO (15:27)
[2024-01-17 16:16] LABS: Estmated Average Glucose 120; Hemoglobin A1C 5.8 % (4.0-6.0)
[2024-01-17 16:19] LABS: Cholesterol 179 mg/dL (0-200); HDL Cholesterol 64 mg/dL (60-100); LDL Cholesterol Calculated 96 mg/dL (50-129); NT Pro B Type Natriuretic Pept 1690 pg/mL (0-450); Triglycerides 93 mg/dL (0-150)
[2024-01-17] MEDS: LORazepam 2 mg/mL INJ 1 mL 0.5 MG IVP (16:48)
--- NOTE | 2024-01-17 17:32 | W.PM.OPSUD ---
Surgery/Procedure H&P Update DATE OF PROCEDURE: January 17, 2024 DATE H&P PERFORMED: 01/17/24 H&P UPDATE INFORMATION: I have reviewed H&P completed within last 30 days, I have examined patient prior to procedure, No changes to prior documentation and Changes to prior documentation as noted here PREOP DIAGNOSIS: Non-ST elevation of PATIENT REASSESSED PRIOR TO SEDATION, WITH NO CHANGE NOTED: Yes PHYSICAL EXAM: alert, oriented x 3, clear to auscultation bilaterally, regular rate & rhythm and operative site marked AIRWAY EVAL/ANESTHESIA PLAN: ASA II, Risks, benefits & alternatives of sedation and/or procedure discussed and Patient agrees to continue as planned
--- NOTE | 2024-01-17 18:11 | PC.RESP ---
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
--- NOTE | 2024-01-17 18:27 | P.CONIM_ITS ---
Providers/Reason For Consult 2 Consulting Physician/Specialty*: Iris Mcqueen MD Reason for Consult*: Non-ST elevation [place] Requesting Physician: Dr. Tanner Attending Physician: Kenney Fonseca MD Primary Care Provider: Brea Leroy MD History of Present Illness History of Present Illness Anai Hinkle is a 83 year old female past medical history significant for hypertension hyperlipidemia continous tobacco abuse was moving her trash when she fell and hit her head, EMS was called because of abrasion, she was noted to be hypertensive, EKG was concerning for ST elevation with multiple PVCs and short runs of ventricular tachycardia , STEMI pager was alerted I saw patient upon arrival in the ER, patient denied categorically any chest pain, twelve-lead EKG repeat was suggestive of sinus rhythm multiple PVCs but no significant ST elevation or depression, patient was discussed regarding left heart catheterization which she refused. CT scan was performed which ruled out intracranial bleed, patient troponin came back more than 600 she was started on heparin drip started on aspirin statin beta-mariam and clopidogrel. She was admitted to the hospital where after discussion with the family member she gave us permission to proceed with left heart catheterization. We will therefore proceed with it. Review of Systems 2 Const: Denies: fever(s) or chills Card: Reports: irregular heart rhythm; Denies: chest pain or palpitations Resp: Denies: dyspnea GI: Denies: abdominal pain : Denies: flank pain, difficulty voiding, dysuria, urinary frequency or urinary urgency Musc: Reports: back pain (Right scapula) and joint pain; Denies: neck pain Skin/Breast: Denies: rash Neuro: Denies: headache(s) or numbness in extremities Medications/Allergies Home Medications Medication Instructions Recorded Confirmed Last Taken Type aspirin 81 mg tablet,delayed 81 mg PO QAM 07/30/22 01/17/24 01/17/24 History release clonidine HCl 0.1 mg tablet 0.1 mg PO BID 07/30/22 01/17/24 01/17/24 History omeprazole 20 mg capsule,delayed 20 mg PO DAILY 07/30/22 01/17/24 01/16/24 History release fish oil-dha-epa 1,200 mg-144 1 cap PO DAILY 05/03/23 01/17/24 Unknown History mg-216 mg capsule multivitamin 1 tab PO DAILY 05/03/23 01/17/24 Unknown History rosuvastatin 20 mg tablet 20 mg PO DAILY 01/17/24 01/17/24 01/17/24 History Allergies Allergy/AdvReac Type Severity Reaction Status Date / Time amlodipine Allergy cant Verified 01/17/24 10:43 remember reaction amoxicillin Allergy ADR-Diarrhe Verified 01/17/24 10:43 a ciprofloxacin Allergy ADR-Diarrhe Verified 01/17/24 10:43 a clindamycin Allergy ADR-Abdominal Verified 01/17/24 10:43 Pain hydrochlorothiazide Allergy ADR-Dizzine Verified 01/17/24 10:43 ss lisinopril Allergy Unknown Verified 01/17/24 10:43 metronidazole Allergy ADR-Abdominal Verified 01/17/24 10:43 Pain rivaroxaban [From Xarelto] Allergy Unknown Verified 01/17/24 10:43 Current Medications Generic Name Dose Route Start Last Admin Trade Name Freq PRN Reason Stop Dose Admin Heparin Sodium/Sodium Chloride 25,000 unit in 500 mls @ 0 mls/hr 01/17/24 13:30 01/17/24 13:52 Heparin Drip IV 14.07 unit/kg/hr CONT SAI 18 mls/hr Administration Protocol Per Protocol Lorazepam 0.5 mg 01/17/24 16:29 01/17/24 16:48 Lorazepam 2 Mg/Ml Inj 1 Ml IVP 0.5 mg Q6H PRN Administration ANXIETY Pantoprazole Sodium 40 mg 01/17/24 14:35 01/17/24 15:27 Pantoprazole 40 Mg Sdv IVP 40 mg Q24H SAI Administration PFSH Acute 2 PFSH: Medical History (Updated 01/17/24 @ 22:14 by Iris Mcqueen MD) History of gastroesophageal reflux (GERD) History of hyperlipidemia Surgical History (Updated 01/17/24 @ 14:26 by Kenney Fonseca MD) Hx of colonoscopy with polypectomy Family History Father Cancer Hodkins disease Mother Hypertension Social History (Updated 01/17/24 @ 14:26 by Kenney Fonseca MD) Smoking and tobacco/nicotine status: current every day tobacco/nicotine user cigarettes Alcohol intake: never Substance/Drug Use: never Vitals/I&O/Wt Last Vital Signs Temp 98.1 F 01/17/24 09:59 Pulse 85 01/17/24 15:45 Resp 21 H 01/17/24 15:45 BP 159/82 01/17/24 15:45 Pulse Ox 96 01/17/24 15:45 O2 Del Method Room Air 01/17/24 14:36 Weight last 48 hrs Weight 137 lb 12.623 oz Weight 141 lb Physical Exam 2 Const: COMMON NORMALS: alert HENMT: OTHER: GENERAL: Patient is alert, awake and oriented x3. HEART: Regular S1 and S2. No murmur, rub or gallop. LUNGS: Clear to auscultate bilaterally. CENTRAL NERVOUS SYSTEM: Grossly nonfocal. EXTREMITIES: Lower extremities with out edema bilaterally. Resp: COMMON NORMALS: clear to auscultation bilaterally AUSCULTATION: clear to auscultation bilaterally Neuro: SENSORIUM/ORIENTATION: Yes alert Data 01/17/24 13:48 01/17/24 13:48 A&P Assessment and plan (1) Acute coronary syndrome: Will proceed with left heart catheterization further plan be advised as per neurology outpatient continue aspirin statin beta-mariam Plavix and heparin. (2) Ventricular bigeminy: Proceed with left heart catheterization would like to rule out ischemic component will add beta-mariam, will monitor on the telemetry. Echocardiogram will be obtained to rule out structural heart problem Consult Attestations 2 Medical Necessity Statement: I am expecting his stay to cross more than 2 midnights. Patient will be inpatient admission for acute coronary syndrome Coding Level of Care Code Acute Code for [facility] Diagnoses Acute coronary syndrome I24.9 Ventricular bigeminy I49.8
[2024-01-17] MEDS: atorvastatin 40 mg Tablet PO (20:11)
[2024-01-17 21:07] LABS: Troponin 5 6HR 1044 ng/L (0-10); Troponin 5 6HR Delta 985 ng/L (0-12)
[2024-01-17 21:18] LABS: Partial Thromboplastin Time > 250.0 SECONDS (23.9-36.7)
[2024-01-17] MEDS: temazepam 15 mg Capsule PO (22:16)
--- NOTE | 2024-01-17 22:23 | PC.NURSE ---
TR Band Oozing: Patient had 2 ml left in tr band when cath site started to ooze a small amount of blood. 6ml of air put back in tr band for total of 8ml.
[2024-01-18] VITALS (12 sets, daily range): BP systolic 136–185; BP diastolic 61–90; PULSE 66–82; RESP 12–15; TEMP 37.1; O2SAT 90–95
--- NOTE | 2024-01-18 01:07 | PC.NURSE ---
TR band was back down to 2ml and starting oozing a small amount of blood around the site, 3 mls was added for total of 5 mls.
--- NOTE | 2024-01-18 02:28 | PC.NURSE ---
TR band removed at 0215, site dressed with 2x2 gauze and tagaderm. No drainage at his time.
[2024-01-18] MEDS: acetaminophen 325 mg Tablet 650 MG PO (03:52)
[2024-01-18] MEDS: ondansetron 2 mg/ML SDV 2 mL 4 MG IVP (03:52)
[2024-01-18] MEDS: alum-mag-hydroxide-sime 30 mL UDC PO (03:52)
[2024-01-18 04:21] LABS: Basophils # 0.1 10^3/uL (0.0-0.1); Basophils % 0.5 %; Eosinophils % 0.4 %; Lymphocytes # 1.9 10^3/uL (0.8-4.8); Lymphocytes % 19.5 %; Mean Corpuscular HGB Conc 31.3 g/dL (30-55); Mean Corpuscular Hemoglobin 31.6 pg (27-33); Mean Corpuscular Volume 100.8 fl (85-98); Mean Platelet Volume 10.4 fL (7.4-10.4); Monocytes # 0.9 10^3/uL (0.2-0.9); Monocytes % 8.7 %; Neutrophils # 6.99 10^3/uL (1.8-7.7); Neutrophils % 70.5 %; Nucleated Red Blood Cells % 0 %; Platelet Count 157 10^3/cmm (157-399); Red Blood Count 3.77 10^6/uL (3.85-5.65); White Blood Count 9.91 10^3/uL (3.29-11.43)
[2024-01-18 04:48] LABS: Blood Urea Nitrogen 16 mg/dL (8-23); Calcium 8.1 mg/dL (8.5-10.5); Carbon Dioxide 21 mmol/L (22-29); Chloride 106 mmol/L (98-107); Creatinine Clr Calc Pharmacy 40.7653; Glucose 94 mg/dL (65-115); Magnesium 2.2 mg/dL (1.7-2.3); Osmolality Calculated 291 mOsm/kg (285-295); Phosphorus 3.5 mg/dL (2.5-4.5); Sodium 140 mmol/L (136-145)
[2024-01-18] MEDS: aspirin 81 mg EC Tablet PO (05:27)
[2024-01-18] MEDS: clopidogrel 75 mg Tablet PO (08:33)
--- NOTE | 2024-01-18 14:11 | P.DS_ITS ---
Discharge Providers Date of Admission: 01/17/24 13:49 Date of Discharge: January 18, 2024 Attending Provider at Admission: Kenney Fonseca MD Attending Provider at Discharge: Kenney Fonseca MD Primary Care Provider: Brea Leroy MD Diagnoses at Discharge Discharge Diagnosis (1) Acute coronary syndrome: Status: Acute (2) Ventricular bigeminy: Status: Acute Reason for Visit Reason for Visit: STEMI Hospital Course Hospital Course Anai Hinkle is a 83 year old female with a past medical history of smoking, chronic back pain, hyperlipidemia, GERD, who presents to [facility] for a fall. Patient tells me that this morning, she was pushing her green trash can, it was a plastic trash can empty, when it fell over on its side, and she fell over the green trash can landing on her right side, she hit her right head against the ground, and her right shoulder immediately had pain in those locations. Denies any significant hip pain, no headache, blurry vision, no nausea, no vomiting, did have shoulder pain, pain with range of motion, denies losing any consciousness, no preceding chest pain or shortness of breath or strokelike symptoms or seizure-like symptoms. EMS was called, upon arrival, patient was have found to have findings concerning for STEMI, heart rates in the 40s, reported that she was in V. tach, STEMI alert was called. Upon arrival, EKG was reviewed by cardiology, STEMI was canceled. Patient's delta troponin is 580, repeat EKG shows subtle ST elevations V1 V2, ER provider spoke to Dr. Dalal, patient was started on aspirin, Plavix, heparin. Patient had declined cath offer from Dr. Dalal. Patient tells me that she does not have any chest pain currently, when I initially had entered the room she was reading a piece of paper with her glasses was quite comfortable. She denies a cardiovascular history, she did have a stress test over 30 years ago which was within normal limits. She tells me that typically she will develop back pain she has chronic back pain, and this back pain will radiate to the chest, and she will start to develop chest pain, however she has not had this pain in a while. She currently denies any recent history of chest pain. He tells me that she actually mowed and mulched her yard yesterday without any difficulty, no chest pain or shortness of breath or syncope or presyncope reported with exertion. Denies any recent sickness or illness. She does report that she has been stressed recently, her has severe osteoarthritis and depends on her for his activities of daily living, this has been a significant stressor on her. I discussed with her her concerning EKG changes, and her elevated troponins. I had a detailed discussion with her about what her EKG changes meant and her elevated troponins meant, were worried about the heart, were worried that she is having a cardiovascular event, given the trajectory of her troponin, her EKG changes. Her hesitancy is about the angiogram, we discussed the risks and benefits of an angiogram, she is worried about the complications such as renal failure, risk of heart attack, risk of stroke. We discussed that certainly given her age the risks are higher, but most patients tolerate coronary angiography. But that does not mean that there is no risk. In her own words, she would rather of a heart attack then go through that testing , she tells me that she just does not want to go through that procedure currently. Discussed morbidity and mortality, she voiced understanding, all questions answered, shared decision making, she tells me that she wants to us to continue medical interventions for now, she is going to think on the angiogram, but for now she declines. I also had a detailed discussion with her about her CODE STATUS, I went through multiple scenarios with her after detailed discussion, she would like to be a DNR/DNI, she does not want to have aggressive interventions, does not want to be kept on life support for any reason, does not want shocking, does not want CPR, does not want to be intubated does not want to have aggressive interventions. STEMI -Most recent EKG showed ST elevations in V1, V2 with ST depressions in 2 3 aVF -Baseline troponin 59, 120-minute and 25.6, delta of 666.6 ? Patient is asymptomatic, does not report any chest pain, resting comfortably, blood pressure 157/66 pulse is 10 1 normal sinus rhythm, temperature 90.1, 97% on room air -Smoker Plan CONCLUSIONS Mildly reduced LV systolic function LVEF 50 to 55%. Mid-distal anteroseptal wall hypokinesis. No significant valvular abnormalities noted. -Heparin drip -Aspirin -Statin -Beta-mariam -Plavix load followed by Plavix -Serial EKGs, serial troponins, telemetry monitoring -Monitor for chest pain -cardiology was consulted, patient moved to icu, after discussion with patient and cardiology, patient agreed to coronary angioplasty, patient is status post RCA stenting, tolerated procedure well -monitored for 24 hours thereafter -will discharge on aspirin, plavix, statin, metoprolol, nitro prn -extensive discussion about quitting smoking, risk of cancer, cad, copd, , she voiced understanding, all questions answered -please stop smoking -if you have chest pain please call 911 -please take aspirin and plavix as prescribed, do not stop taking these medications as they are keeping your heart stents open -if you develop bloody or black stool or fall please go to emergency room -Please monitor your blood pressures, follow-up with your primary care provider for blood pressure check, in 1 week Physical Exam Const: COMMON NORMALS: no acute distress and patient oriented x3 Resp: COMMON NORMALS: normal respiratory effort, No retractions, No use of accessory muscles and clear to auscultation bilaterally AUSCULTATION: clear to auscultation bilaterally Cardio: COMMON NORMALS: regular rate, regular rhythm, S1 normal heart sound present and S2 normal heart sound present RATE: regular rate RHYTHM: regular rhythm HEART SOUNDS: S1 normal heart sound present and S2 normal heart sound present GI: COMMON NORMALS: Normal to inspection, nondistended, normoactive bowel sounds present and non-tender Extremity: COMMON NORMALS: no pedal edema Neuro: COMMON NORMALS: patient oriented x3 Psych: COMMON NORMALS: mental status grossly normal Discharge Data Studies Completed and Pending Completed Studies During Hospitalization Category Date Time Status CT head wo con* [id number] Stat Cat Scan 01/17/24 10:50 Completed XR chest 1V portable [id number] Stat Exams 01/17/24 10:10 [place] [id number] Stat Exams 01/17/24 10:09 Completed US echo complete [CV. echo complete* [id number]] Stat Ultrasound 01/17/24 11:32 Completed Pending at discharge Category Date Time Status [employer] request for service Routine Exams 01/17/24 16:42 Ordered Platelet Count Q2D Lab 01/19/24 04:00 Ordered Platelet Count Q2D Lab 01/21/24 04:00 Ordered Radiology Impressions Scapula X-Ray 01/17/24 10:09 IMPRESSION: 1. No definite fracture is identified. If there is a strong clinical concern, CT may add additional information. Chest X-Ray 01/17/24 10:10 IMPRESSION: 1. Minimal blunting of the costophrenic angles unchanged when compared to prior exam. Head CT 01/17/24 10:50 IMPRESSION: 1. No acute intracranial hemorrhage or edema. 2. Mild age-related atrophy and small vessel disease. No acute infarct. 3. Small RIGHT frontal scalp hematoma and laceration. Laboratory Results WBC 9.91 10^3/uL (3.29-11.43) 01/18/24 03:50 RBC 3.77 10^6/uL (3.85-5.65) L 01/18/24 03:50 Hgb 11.90 g/dL (11.27-16.99) 01/18/24 03:50 Hct 38.0 % (36-47) 01/18/24 03:50 MCV 100.8 fl (85-98) H 01/18/24 03:50 MCH 31.6 pg (27-33) 01/18/24 03:50 MCHC 31.3 g/dL (30-55) 01/18/24 03:50 RDW 13.0 % (12.1-15.1) 01/18/24 03:50 Plt Count 157 10^3/cmm (157-399) 01/18/24 03:50 MPV 10.4 fL (7.4-10.4) 01/18/24 03:50 Neut % (Auto) 70.5 % 01/18/24 03:50 Lymph % (Auto) 19.5 % 01/18/24 03:50 [place] % (Auto) 8.7 % 01/18/24 03:50 Eos % (Auto) 0.4 % 01/18/24 03:50 Baso % (Auto) 0.5 % 01/18/24 03:50 Neut # (Auto) 6.99 10^3/uL (1.8-7.7) 01/18/24 03:50 Lymph # (Auto) 1.9 10^3/uL (0.8-4.8) 01/18/24 03:50 [place] # (Auto) 0.9 10^3/uL (0.2-0.9) 01/18/24 03:50 Eos # (Auto) 0.0 10^3/uL (0.0-0.8) 01/18/24 03:50 Baso # (Auto) 0.1 10^3/uL (0.0-0.1) 01/18/24 03:50 Nucleated RBC % (auto) 0 % 01/18/24 03:50 Nucleated RBCs # 0.0 /100WBC 01/18/24 03:50 PT 12.90 SECONDS (12.1-14.9) 01/17/24 13:48 INR 0.94 (0.8-1.2) 01/17/24 13:48 APTT > 250.0 SECONDS (23.9-36.7) H* D 01/17/24 19:50 Sodium 140 mmol/L (136-145) 01/18/24 03:50 Potassium 4.0 mmol/L (3.5-5.1) 01/18/24 03:50 Chloride 106 mmol/L (98-107) 01/18/24 03:50 Carbon Dioxide 21 mmol/L (22-29) L 01/18/24 03:50 Anion Gap 17.0 (5-19) 01/18/24 03:50 BUN 16 mg/dL (8-23) 01/18/24 03:50 Creatinine 1.0 mg/dL (0.5-0.9) H 01/18/24 03:50 GFR Calculation Not Reportable 01/18/24 03:50 Glucose 94 mg/dL (65-115) 01/18/24 03:50 Estimat Average Glucose 120 01/17/24 13:48 Hemoglobin A1c 5.8 % (4.0-6.0) 01/17/24 13:48 Calculated Osmolality 291 mOsm/kg (285-295) 01/18/24 03:50 Calcium 8.1 mg/dL (8.5-10.5) L 01/18/24 03:50 Phosphorus 3.5 mg/dL (2.5-4.5) 01/18/24 03:50 Magnesium 2.2 mg/dL (1.7-2.3) 01/18/24 03:50 Total Bilirubin 0.5 mg/dL (0.15-1.2) 01/17/24 13:48 AST 51 U/L (0-32) H 01/17/24 13:48 ALT 16 U/L (0-33) 01/17/24 13:48 Alkaline Phosphatase 60 U/L (35-105) 01/17/24 13:48 Creatine Kinase 199 U/L (26-192) H 01/17/24 12:02 Troponin T Baseline 59 ng/L (0-10) H 01/17/24 10:10 Troponin T 120 Minute 725.6 ng/L (0-10) H 01/17/24 12:01 Delta Troponin T 666.6 ABS# (0-10) H* 01/17/24 12:01 Troponin T Hi Sens 6Hr 1044 ng/L (0-10) H 01/17/24 19:50 Troponin T Hi Sens 6Hr Delta 985 ng/L (0-12) H* 01/17/24 19:50 C-Reactive Protein 3.0 mg/L (0.0-4.9) 01/17/24 12:02 NT-Pro-B Natriuret Pep 1690 pg/mL (0-450) H 01/17/24 13:48 Total Protein 6.9 g/dL (6.6-8.7) 01/17/24 13:48 Albumin 4.2 g/dL (3.5-5.2) 01/17/24 13:48 Globulin 2.7 g/dL (1.3-4.6) 01/17/24 13:48 Triglycerides 93 mg/dL (0-150) 01/17/24 13:48 Cholesterol 179 mg/dL (0-200) 01/17/24 13:48 LDL Cholesterol, Calc 96 mg/dL (50-129) 01/17/24 13:48 HDL Cholesterol 64 mg/dL (60-100) 01/17/24 13:48 LDL/HDL Ratio 1.50 RATIO (0.00-3.22) 01/17/24 13:48 Cholesterol/HDL Ratio 2.80 mg/dL (0.0-4.40) 01/17/24 13:48 TSH 1.30 uIU/mL (0.27-4.20) 01/17/24 13:48 Urine Color Yellow (Yellow) 01/17/24 10:33 Urine Appearance Clear (CLEAR) 01/17/24 10:33 Urine pH 7.5 (5-7) 01/17/24 10:33 Ur Specific [place] 1.008 (1.005-1.030) 01/17/24 10:33 Urine Protein Trace (Negative) A 01/17/24 10:33 Urine Glucose (UA) Negative (Normal) 01/17/24 10:33 Urine Ketones Negative (Negative) 01/17/24 10:33 Urine Blood Negative (Negative) 01/17/24 10:33 Urine Nitrate Negative (Negative) 01/17/24 10:33 Urine Bilirubin Negative (Negative) 01/17/24 10:33 Urine Urobilinogen 0.2 mg/dL (Negative) 01/17/24 10:33 Ur Leukocyte Esterase Negative (Negative) 01/17/24 10:33 Urine RBC 0-4 /hpf (0-2) H 01/17/24 10:33 Urine WBC 0-4 /hpf (0-5) H 01/17/24 10:33 Ur Squamous Epith Cells 0-4 /hpf (0-5) H 01/17/24 10:33 Ur Transition Epith Cell 0-4 /hpf 01/17/24 10:33 Amorphous Sediment Trace /hpf 01/17/24 10:33 Urine Bacteria None /hpf (NONE) 01/17/24 10:33 Fine Granular Casts 0-4 /lpf H 01/17/24 10:33 Urine Mucus Trace /hpf 01/17/24 10:33 Urine Opiates Screen Negative ng/mL (Negative) 01/17/24 10:33 Ur Barbiturates Screen Negative ng/mL (Negative) 01/17/24 10:33 Ur Phencyclidine Scrn Negative ng/mL (Negative) 01/17/24 10:33 Ur Amphetamines Screen Negative ng/mL (Negative) 01/17/24 10:33 U Benzodiazepines Scrn Negative ng/mL (Negative) 01/17/24 10:33 Urine Cocaine Screen Negative ng/mL (Negative) 01/17/24 10:33 U Marijuana (THC) Screen Negative ng/mL (Negative) 01/17/24 10:33 Vitals Last Vital Signs Temp 98.7 F 01/18/24 05:32 Pulse 72 01/18/24 08:00 Resp 14 01/18/24 08:00 BP 181/86 01/18/24 12:05 Pulse Ox 95 01/18/24 12:05 O2 Del Method Room Air 01/17/24 14:36 Discharge Plan Discharge Patient Disposition: Home Condition: Stable Prescriptions: New clopidogrel 75 mg Tablet 75 mg PO DAILY 30 Days Qty: 30 0RF nitroglycerin 0.4 mg Tablet, Sublingual 0.4 mg sublingual Q5M PRN (Reason: Chest Pain) 30 Days Qty: 30 0RF metoprolol succinate 25 mg Tablet Extended Release 24 Hr 25 mg PO DAILY 30 Days Qty: 30 0RF albuterol sulfate 90 mcg/actuation HFA aerosol inhaler 1 inh inhalation Q6H PRN (Reason: shortness of breath or wheezing) Qty: 8.5 0RF Continued multivitamin Tablet 1 tab PO DAILY fish oil-dha-epa 1,200-144-216 mg capsule 1 cap PO DAILY omeprazole 20 mg capsule,delayed release(DR/EC) 20 mg PO DAILY clonidine HCl 0.1 mg tablet 0.1 mg PO BID 30 Days Qty: 30 0RF aspirin 81 mg Tablet,Delayed Release (Dr/Ec) 81 mg PO QAM 30 Days Qty: 30 0RF rosuvastatin 20 mg tablet 20 mg PO DAILY 30 Days Qty: 30 0RF Discharge Orders: Discharge Order (Routine); Ordered 01/18/24 Ordered By: Kenney Fonseca Referrals: Brea Leroy MD [Primary Care Provider] - 1 week Ludy Fountain FNP [Nurse Practitioner] - 1 week Discharge Diet: Cardiac Discharge Activity: Resume usual activity Patient Instructions: Heart Attack (DC), Heart Healthy Diet (DC), Fall Prevention (DC), Chest Pain Stoplight, Opioid Safety, Post Angiogram Home Care Instructions, Post Heart Attack Stoplight Activity Restrictions/Additional Instructions: -please stop smoking -if you have chest pain please call 911 -please take aspirin and plavix as prescribed, do not stop taking these medications as they are keeping your heart stents open -if you develop bloody or black stool or fall please go to emergency room -Please monitor your blood pressures, follow-up with your primary care provider for blood pressure check, in 1 week Discharge Attestations Time Spent in Discharge Care*: greater than 30 min Quality Metrics Clinical Quality Measures [ Acute Myocardial Infaction { Clinical Trial Participant: No; Contraindication to aspirin: None; Aspirin prescribed; Contraindication to statin: None; Statin prescribed; Contraindication to PCI: None; PCI performed;}. No reported AMI, CVA or VTE this stay] Coding Level of Care Code Acute Code for [facility] Diagnoses Acute coronary syndrome I24.9 Ventricular bigeminy I49.8
--- NOTE | 2024-01-18 15:09 | P.PN_ITS ---
Subjective 2 Subjective: This is a very pleasant 83-year-old female who is status post stent to a complex lesion in the RCA. She is doing well today. No chest pain no shortness of breath. No signs or symptoms of CHF. Blood pressure is a little high today 162/61. She does report a headache without neurological signs or symptoms. Denies chest pain or nausea or vomiting. Will add metoprolol succinate 12.5 mg daily and restart patient's clonidine. Medications: Reviewed: Yes Vitals/I&O/Wt Last Vital Signs Temp 98.7 F 01/18/24 05:32 Pulse 72 01/18/24 08:00 Resp 14 01/18/24 08:00 BP 181/86 01/18/24 12:05 Pulse Ox 95 01/18/24 12:05 O2 Del Method Room Air 01/17/24 14:36 01/18/24 01/18/24 01/18/24 06:59 14:59 22:59 Intake Total 400 / 400 Balance 400 / 400 Weight last 48 hrs Weight 139 lb 11.2 oz Weight 137 lb 12.623 oz Weight 141 lb Physical Exam 2 Narrative: General: No apparent distress, healthy appearing, well nourished Neck: No carotid bruit bilaterally Muskuloskeletal: Full ROM Lymphatic: no lymphedema noted Respiratory: Normal respiratory effort, clear to auscultation bilaterally throughout all lung perera, no use of accessory muscles Cardio: No JVD, regular rate, regular rhythm, S1 S2 normal, no murmurs, peripheral pulses 2+ throughout GI: Normal to inspection, nondistended Extremities: Full ROM, normal, normal capillary refill, no cyanosis or edema Neuro: Alert and oriented x4, no focal motor deficits Psych: Affect normal, denies suicidal ideation, mental status grossly normal Skin: No rashes or lesions noted, no wounds Data 01/18/24 03:50 01/18/24 03:50 A&P Assessment and plan (1) Acute coronary syndrome: Patient status post left heart cath with a stent to a complex lesion in the RCA. Patient may be discharged from a cardiology standpoint once her blood pressure is better controlled. When discharged, aspirin Plavix for at least 1 year metoprolol succinate 12.5 mg daily at as well as atorvastatin 40 mg daily. She is to see us in the clinic in 1 week. Discussed with patient no heavy lifting more than a gallon of milk for 3 days. No driving for 3 days. Monitor for and report signs or symptoms of bleeding. Monitor for and report s/s of infection such as fever 101 or greater, swelling, redness or pain to the groin. ER with chest pain. Due to patient's headache will not administer nitrate. (2) Ventricular bigeminy: Beta-mariam added. Patient had no further events status post stenting of the RCA. (3) Hypertension: Patient may be having rebound hypertension due to patient has been off of clonidine for a couple of days. Recommend restart clonidine add metoprolol succinate 12.5 daily once patient blood pressure is better controlled she may be discharged. Qualifiers: Hypertension type: primary hypertension Qualified Code(s): I10 - Essential (primary) hypertension Plan The plan is to continue dual antiplatelet therapy for 1 year, continue statin therapy, metoprolol succinate, patient to see us in the clinic in 1 week for further evaluation and treatment. Attestations 2 Medical Necessity Statement*: Deferred to primary. Coding Level of Care Code Acute Code for [facility] Diagnoses Acute coronary syndrome I24.9 Ventricular bigeminy I49.8 Primary hypertension I10 Hypertension type: primary hypertension
[2024-01-18] MEDS: cloNIDine 0.1 mg Tablet PO (15:14)
[2024-01-18] MEDS: ALPRAZolam 0.5 mg Tablet 0.25 MG PO (15:14)
[2024-01-18] MEDS: metoprolol succinate ER (24 HR) 25 mg Tablet 12.5 MG PO (15:22)
--- NOTE | 2024-01-18 15:27 | PC.OT ---
OT EVALUATION ORDERS RECEIVED. PER DISCUSSION WITH Brandt; Shefali. GAVE UE EXERCISES REQUESTED BY . NO FURTHER SKILLED OT REQUIRED AT THIS TIME.
--- NOTE | 2024-01-18 16:52 | PC.NURSE ---
All D/C instructions educated to patient, patient signed D/C form, IVs dc. transported home by family
== END 2024-01-18 16:57 | disposition home or self-care (01) | DRG 322 ==
LOC: ER 12:38 → ICU 13:49
PROVIDERS: Internal Medicine Cardiovascular Disease; Admitting Provider Family Medicine; Emergency Provider Family Medicine; PCP Family Medicine; Visit Provider Family Medicine
PROC: 027034Z Dilation of Coronary Artery, One Artery with Drug-eluting Intraluminal Device, Percutaneous Approach (ICD-10-PCS; principal; 2024-01-17 17:00)
PROC: 027034Z Dilation of Coronary Artery, One Artery with Drug-eluting Intraluminal Device, Percutaneous Approach (ICD-10-PCS; 2024-01-17 17:00)
DX: I21.4 Non-ST elevation (NSTEMI) myocardial infarction (principal); I47.20 Ventricular tachycardia, unspecified; I25.10 Atherosclerotic heart disease of native coronary artery without angina pectoris; F17.210 Nicotine dependence, cigarettes, uncomplicated; G89.29 Other chronic pain; M54.9 Dorsalgia, unspecified; E78.5 Hyperlipidemia, unspecified; K21.9 Gastro-esophageal reflux disease without esophagitis; W01.0XXA Fall on same level from slipping, tripping and stumbling without subsequent striking against object, initial encounter; M25.511 Pain in right shoulder; M19.90 Unspecified osteoarthritis, unspecified site; Z66 Do not resuscitate; I10 Essential (primary) hypertension; Z79.82 Long term (current) use of aspirin
CPT/HCPCS: 36415; 70450; 71045; 73010; 80048; 80053; 80061; 80306; 81001; 82550; 83036; 83735; 83880; 84100; 84443; 84484; 85025; 85347; 85610; 85730; 86140; 93005; 93306; 93458; 96374; 96375; 97110; 97161; 99152; 99153; 99291; C1725; C1769; C1874; C1887; C1894; C9600; J0360; J1644; J2060; J2250; J2405; J2470; J3010; J3490; J7030; Q9967

== ENCOUNTER → 2024-01-30 08:17 | Outpatient (BNVA) | payer MEDICARE, SELFPAY | PROVIDERS: PCP Family Medicine; Visit Provider Nurse Practitioner Family | DX: I25.2 Old myocardial infarction (principal); Z95.5 Presence of coronary angioplasty implant and graft; F17.210 Nicotine dependence, cigarettes, uncomplicated; E78.5 Hyperlipidemia, unspecified; K21.9 Gastro-esophageal reflux disease without esophagitis; I10 Essential (primary) hypertension | CPT/HCPCS: 99214 ==

== ENCOUNTER → 2024-05-29 14:55 | Outpatient (BNVA) | payer MEDICARE, SELFPAY | PROVIDERS: PCP Family Medicine; Visit Provider Internal Medicine Cardiovascular Disease | DX: I25.10 Atherosclerotic heart disease of native coronary artery without angina pectoris (principal); I10 Essential (primary) hypertension; E78.5 Hyperlipidemia, unspecified | CPT/HCPCS: 99214 ==

== ENCOUNTER 2024-08-25 08:59 | Emergency (ER) | payer MEDICARE, SELFPAY ==
[2024-08-25 09:11] VITALS: BP 153/61; PULSE 71; TEMP 36.7; O2SAT 96
[2024-08-25 09:34] LABS: Basophils % 0.6 %; Eosinophils # 0.1 10^3/uL (0.0-0.8); Eosinophils % 1.8 %; Hematocrit 36.6 % (36-47); Lymphocytes # 1.3 10^3/uL (0.8-4.8); Lymphocytes % 18.5 %; Mean Corpuscular HGB Conc 32.5 g/dL (30-55); Mean Corpuscular Hemoglobin 31.9 pg (27-33); Mean Corpuscular Volume 98.1 fl (85-98); Mean Platelet Volume 10.5 fL (7.4-10.4); Monocytes # 0.8 10^3/uL (0.2-0.9); Monocytes % 11.6 %; Neutrophils # 4.53 10^3/uL (1.8-7.7); Neutrophils % 67.2 %; Nucleated Red Blood Cells % 0 %; Platelet Count 171 10^3/cmm (157-399); Red Blood Count 3.73 10^6/uL (3.85-5.65); Red Cell Distribution Width 13.6 % (12.1-15.1); White Blood Count 6.74 10^3/uL (3.29-11.43)
[2024-08-25 09:55] LABS: Alanine Aminotransferase 11 U/L (0-33); Albumin Level 3.6 g/dL (3.5-5.2); Alkaline Phosphatase 61 U/L (35-105); Anion Gap 15.4 (5-19); Aspartate Amino Transferase 19 U/L (0-32); Blood Urea Nitrogen 23 mg/dL (8-23); Calcium 9.1 mg/dL (8.5-10.5); Carbon Dioxide 23 mmol/L (22-29); Chloride 102 mmol/L (98-107); Creatinine Clr Calc Pharmacy 23.8157; Glucose 112 mg/dL (65-115); Lipase 22 U/L (13-60); Osmolality Calculated 288 mOsm/kg (285-295); Potassium 3.4 mmol/L (3.5-5.1); Sodium 137 mmol/L (136-145); Total Bilirubin 0.6 mg/dL (0.15-1.2); Total Protein 6.6 g/dL (6.6-8.7)
--- NOTE | 2024-08-25 10:17 | CTR_ITS ---
PROCEDURE INFORMATION: Exam: CT Abdomen And Pelvis With Contrast Exam date and time: 08/25/2024 11:09 AM Age: 83 years old Clinical indication: Abdominal pain; Additional info: Llq abd pain TECHNIQUE: Imaging protocol: Computed tomography of the abdomen and pelvis with contrast. Radiation optimization: All CT scans at this facility use at least one of these dose optimization techniques: automated exposure control; mA and/or kV adjustment per patient size (includes targeted exams where dose is matched to clinical indication); or iterative reconstruction. Contrast material: OMNI 350; Contrast volume: 80 ml; Contrast route: INTRAVENOUS (IV); COMPARISON: CT abdomen pelvis w con* [id number] 04/19/2023 5:17 PM RADIATION DOSE METRICS: Total DLP (mGy-cm): 332.33 FINDINGS: Lungs: There are minor atelectatic changes at the lung bases. Liver: Normal. No mass. Gallbladder and biliary ducts: Normal. No calcified stones. No ductal dilation. Pancreas: Stable subcentimeter cysts within the body of the pancreas likely benign. Pancreas is otherwise unremarkable. Spleen: Normal. No splenomegaly. Adrenal glands: Normal. No mass. Kidneys and ureters: Normal. No hydronephrosis. Stomach and bowel: Redemonstration of left lower quadrant spigelian type hernia containing multiple small bowel loops without evidence of obstruction. There is portion of the distal rectum now protruding through the left pelvic floor likely representing a rectocele. There is mild colonic wall thickening and indistinct pericolonic fat stranding involving the sigmoid colon extending into the rectum with few scattered diverticuli suspicious for either acute diverticulitis or segmental colitis. There is a small amount of fluid within the right pelvic floor that may be related to the above pathology. Appendix: No evidence of appendicitis. Intraperitoneal space: Unremarkable. No free air. No significant fluid collection. Vasculature: Abdominal aorta and iliac vessels are diffusely calcified. There is no aortic aneurysm. Lymph nodes: Unremarkable. No enlarged lymph nodes. Urinary bladder: Mild bladder wall thickening unchanged, nonspecific. Reproductive: Multiple calcified uterine fibroids redemonstrated. Bones/joints: Moderate degenerative changes throughout the lumbar spine with chronic compression deformity L5.. No acute bony abnormalities. Soft tissues: Unremarkable. CT/CT abdomen pelvis w con* [id number] IMPRESSION: 1. Mild inflammatory changes involving sigmoid colon with small amount of accompanying pelvic free fluid that may be secondary to acute diverticulitis or acute segmental colitis. 2. Interval development of a left-sided rectocele along the pelvic floor. 3. Redemonstration of left-sided spigelian wall hernia left lower quadrant involving cluster of small bowel loops without evidence of obstruction. 4. Mild diffuse bladder wall thickening unchanged. Please correlate for recurrent cystitis.
--- NOTE | 2024-08-25 10:19 | W.ED.NAVMDI ---
HPI - Nausea/Vomiting/Diarrhea General: Chief complaint: Nausea/Vomiting/Diarrhea Stated complaint: n/d, hives and pain in vaginal area Time Seen by Provider: 08/25/24 10:10 History of Present Illness: 83-year-old female presents with lower abdominal pain. Patient reports she has had some diarrhea and cramping. She has a history of diverticulitis. That she has had pain down in the lower abdomen for a long time but over the last couple days has gotten a lot worse. She saw her primary care provider 2 days ago and they schedule an outpatient CT but the pain has gotten worse. Associated nausea: Yes Associated symtoms: Reports nausea; Denies chest pain or dysuria Related Data Home Medications ?Medication ?Instructions ?Recorded ?Confirmed fish oil-dha-epa 1,200 mg-144 1 cap PO DAILY 05/03/23 08/25/24 mg-216 mg capsule multivitamin 1 tab PO DAILY 05/03/23 08/25/24 diphenhydramine HCl 25 mg capsule 25 mg PO TID PRN hives 08/25/24 08/25/24 (Benadryl) metoprolol succinate 25 mg 25 mg PO DAILY 08/25/24 08/25/24 tablet,extended release 24 hr nitroglycerin 0.4 mg sublingual See Rx Instructions .Route .COMPLEX 08/25/24 08/25/24 tablet rosuvastatin 20 mg tablet 20 mg PO QPM 08/25/24 08/25/24 Previous Rx's ?Medication ?Instructions ?Recorded aspirin 81 mg tablet,delayed 81 mg PO QAM 30 days #30 tabs 01/18/24 release clonidine HCl 0.1 mg tablet 0.1 mg PO BID 30 days #30 tabs 01/18/24 clopidogrel 75 mg tablet (Plavix) 75 mg PO DAILY #90 tabs 06/21/24 amoxicillin 875 mg-potassium 1 tab PO Q12H #14 tabs 08/25/24 clavulanate 125 mg tablet dicyclomine 10 mg capsule 10 mg PO QID PRN abdominal pain 08/25/24 #20 caps ondansetron HCl 4 mg tablet 4 mg PO Q6H PRN nausea and 08/25/24 vomiting #20 tabs Allergies Allergy/AdvReac Type Severity Reaction Status Date / Time amlodipine Allergy cant Verified 08/25/24 09:18 remember reaction amoxicillin Allergy ADR-Diarrhe Verified 08/25/24 09:18 a ciprofloxacin Allergy ADR-Diarrhe Verified 08/25/24 09:18 a clindamycin Allergy ADR-Abdominal Verified 08/25/24 09:18 Pain hydrochlorothiazide Allergy ADR-Dizzine Verified 08/25/24 09:18 ss hydroxyzine Allergy Unknown Verified 08/25/24 09:18 lansoprazole (From Prevacid) Allergy Unknown Verified 08/25/24 09:18 lisinopril Allergy Unknown Verified 08/25/24 09:18 metronidazole Allergy ADR-Abdominal Verified 08/25/24 09:18 Pain rivaroxaban (From Xarelto) Allergy Unknown Verified 08/25/24 09:18 ticagrelor (From Brilinta) Allergy Unknown Verified 08/25/24 09:18 pantoprazole (From Protonix) AdvReac Dizziness Verified 08/25/24 09:18 Review of Systems Const: Denies: fever(s) or chills Card: Denies: chest pain Resp: Denies: dyspnea GI: Reports: abdominal pain, nausea and diarrhea; Denies: vomiting : Denies: flank pain or dysuria PFSH ED PFSH: Medical History History of gastroesophageal reflux (GERD) History of hyperlipidemia Surgical History Hx of colonoscopy with polypectomy Family History Father Cancer Hodkins disease Mother Hypertension Social History Smoking and tobacco/nicotine status: current some day tobacco/nicotine user cigarettes Alcohol intake: never Substance/Drug Use: never Physical Exam Const: COMMON NORMALS: no acute distress, no limitations and alert Resp: COMMON NORMALS: normal respiratory effort and clear to auscultation bilaterally AUSCULTATION: clear to auscultation bilaterally Cardio: COMMON NORMALS: regular rate and regular rhythm RATE: regular rate RHYTHM: regular rhythm GI: COMMON NORMALS: Soft to palpation PALPATION: Yes Soft to palpation and Yes Tenderness to palpation present (GI) Details: LLQ Neuro: SENSORIUM/ORIENTATION: Yes alert Course Vital Signs: Vital signs: Vital Signs Temperature 98.1 F 08/25/24 09:11 Pulse Rate 59 L 08/25/24 13:19 Blood Pressure 143/87 08/25/24 13:19 Pulse Oximetry 98 08/25/24 13:19 Oxygen Delivery Me thod Room Air 08/25/24 12:32 MDM - Nausea/Vomiting/Diarrhea Medical Decision Making Patient's diagnostic studies were ordered and reviewed. Patient has a mild increase in her creatinine and mild low potassium otherwise no significant acute findings. Due to patient's history I did obtain a CT abdomen pelvis which shows likely some diverticulitis versus a colitis. Due to her history I will start her on Augmentin. She has reported allergy but is just upset stomach. Also provide her with Zofran and Bentyl for the cramping. Recommended clear liquid diet and advance as tolerated. Patient was stable and discharged home. She should follow-up with primary care provider in a couple days for recheck or return to the ER as needed. Lab Data 08/25/24 09:25 08/25/24 09:25 Radiology Impressions Abdomen/Pelvis CT 08/25/24 10:17 IMPRESSION: 1. Mild inflammatory changes involving sigmoid colon with small amount of accompanying pelvic free fluid that may be secondary to acute diverticulitis or acute segmental colitis. 2. Interval development of a left-sided rectocele along the pelvic floor. 3. Redemonstration of left-sided spigelian wall hernia left lower quadrant involving cluster of small bowel loops without evidence of obstruction. 4. Mild diffuse bladder wall thickening unchanged. Please correlate for recurrent cystitis. Laboratory Results WBC 6.74 10^3/uL (3.29-11.43) 08/25/24 09: RBC 3.73 10^6/uL (3.85-5.65) L 08/25/24 09:25 Hgb 11.90 g/dL (11.27-16.99) 08/25/24 09: Hct 36.6 % (36-47) 08/25/24: MCV 98.1 fl (85-98) H 08/25/24 09:25 MCH 31.9 pg (27-33) 08/25/24 09: MCHC 32.5 g/dL (30-55) 08/25/24 09: RDW 13.6 % (12.1-15.1) 08/25/24 09:25 Plt Count 171 10^3/cmm (157-399) 08/25/24 09:25 MPV 10.5 fL (7.4-10.4) H 08/25/24 09:25 Neut % (Auto) 67.2 % 08/25/24 09: Lymph % (Auto) 18.5 % 08/25/24 09:25 Scott % (Auto) 11.6 % 08/25/24 09:25 Eos % (Auto) 1.8 % 08/25/24 09:25 Baso % (Auto) 0.6 % 08/25/24:25 Neut # (Auto) 4.53 10^3/uL (1.8-7.7) 08/25/24: Lymph # (Auto) 1.3 10^3/uL (0.8-4.8) 08/25/24 09:25 Scott # (Auto) 0.8 10^3/uL (0.2-0.9) 08/25/24 09:25 Eos # (Auto) 0.1 10^3/uL (0.0-0.8) 08/25/24 09:25 Baso # (Auto) 0.0 10^3/uL (0.0-0.1) 08/25/24: Nucleated RBC % (auto) 0 % 08/25/24: Nucleated RBCs # 0.0 /100WBC 08/25/24 09:25 Sodium 137 mmol/L (136-145) 08/25/24 09:25 Potassium 3.4 mmol/L (3.5-5.1) L 08/25/24 09:25 Chloride 102 mmol/L (98-107) 08/25/24 09:25 Carbon Dioxide 23 mmol/L (22-29) 08/25/24 09:25 Anion Gap 15.4 (5-19) 08/25/24 09:25 BUN 23 mg/dL (8-23) 08/25/24 09:25 Creatinine 1.6 mg/dL (0.5-0.9) H 08/25/24 09:25 GFR Calculation Not Reportable 08/25/24 09: Glucose 112 mg/dL (65-115) 08/25/24 09:25 Calculated Osmolality 288 mOsm/kg (285-295) 08/25/24 09: Calcium 9.1 mg/dL (8.5-10.5) 08/25/24 09: Total Bilirubin 0.6 mg/dL (0.15-1.2) 08/25/24 09:25 AST 19 U/L (0-32) 08/25/24 09:25 ALT 11 U/L (0-33) 08/25/24: Alkaline Phosphatase 61 U/L (35-105) 08/25/24 09: Total Protein 6.6 g/dL (6.6-8.7) 08/25/24 09: Albumin 3.6 g/dL (3.5-5.2) 08/25/24: Globulin 3.0 g/dL (1.3-4.6) 08/25/24: Lipase 22 U/L (13-60) 08/25/24 09: Urine Color Yellow (Yellow) 08/25/24 10:40 Urine Appearance Cloudy (CLEAR) A 08/25/24 10:40 Urine pH 5.5 (5-7) 08/25/24 10:40 Ur Specific [place] 1.016 (1.005-1.030) 08/25/24 10:40 Urine Protein 2+ (Negative) A 08/25/24 10:40 Urine Glucose (UA) Negative (Normal) 08/25/24 10:40 Urine Ketones Negative (Negative) 08/25/24 10:40 Urine Blood Negative (Negative) 08/25/24 10:40 Urine Nitrate Negative (Negative) 08/25/24 10:40 Urine Bilirubin Negative (Negative) 08/25/24 10:40 Urine Urobilinogen 1.0 mg/dL (Negative) 08/25/24 10:40 Ur Leukocyte Esterase Negative (Negative) 08/25/24 10:40 Urine RBC 21-50 /hpf (0-2) H 08/25/24 10:40 Urine WBC 0-5 /hpf (0-5) 08/25/24 10:40 Ur Squamous Epith Cells 21-50 /hpf (0-5) H 08/25/24 10:40 Amorphous Sediment Not Reportable 08/25/24 10:40 Urine Bacteria None seen /hpf (NONE) 08/25/24 10:40 Hyaline Casts 22.33 /lpf 08/25/24 10:40 Coarse Granular Casts 5-10 /lpf H 08/25/24 10:40 RBC Casts 0-4 /lpf 08/25/24 10:40 All radiology interpretation(s) finalized by discharge Discharge Plan Discharge Patient Disposition: Home Clinical Impression: Diverticulitis Condition: Stable Prescriptions: New amoxicillin-pot clavulanate 875-125 mg tablet 1 tab PO Q12H Qty: 14 0RF ondansetron HCl 4 mg tablet 4 mg PO Q6H PRN (Reason: nausea and vomiting) Qty: 20 0RF dicyclomine 10 mg capsule 10 mg PO QID PRN (Reason: abdominal pain) Qty: 20 0RF No Action multivitamin Tablet 1 tab PO DAILY fish oil-dha-epa 1,200-144-216 mg capsule 1 cap PO DAILY clopidogrel [Plavix] 75 mg tablet 75 mg PO DAILY Qty: 90 3RF diphenhydramine HCl [Benadryl] 25 mg Capsule 25 mg PO TID PRN (Reason: hives) nitroglycerin 0.4 mg tablet, sublingual See Rx Instructions .ROUTE .COMPLEX Rx Instructions: Dissolve ONE TABLET UNDER THE TONGUE EVERY FIVE MINUTES NEEDED FOR CHEST pain. if CHEST pain not relieved in FIVE minutes AFTER first DOSE, seek immediate medical attention. metoprolol succinate 25 mg tablet extended release 24 hr 25 mg PO DAILY rosuvastatin 20 mg tablet 20 mg PO QPM clonidine HCl 0.1 mg tablet 0.1 mg PO BID 30 Days Qty: 30 0RF aspirin 81 mg Tablet,Delayed Release (Dr/Ec) 81 mg PO QAM 30 Days Qty: 30 0RF Discharge Orders: Discharge ED (Routine); Ordered 08/25/24 Ordered By: Gunnar Benoit Referrals: Nai Daly NP [Primary Care Provider, Unknown] Discharge Diet: Advance as tolerated and Clear Liquid Discharge Activity: Increase activity as tolerated Patient Instructions: Diverticulitis (ED), Clear Liquid Diet (ED), Opioid Safety, Pain Management Activity Restrictions/Additional Instructions: Clear liquid diet for the next 24 to 36 hours and advance as tolerated. Be sure you drink plenty fluids. Please follow-up with your primary care provider in 2 to 3 days for recheck. Return to the ER with any concerns. Print Language: Indonesian Coding Level of Care Code ED Tobacco Dipper for Holly Quick
[2024-08-25] MEDS: sodium chloride 0.9% 500 ML IV (10:34)
[2024-08-25] MEDS: ondansetron 2 mg/ML SDV 2 mL 4 MG IVP (10:34)
[2024-08-25 10:36] VITALS: BP 185/62; PULSE 58; O2SAT 98
[2024-08-25 10:46] LABS: Bilirubin Urine Negative (Negative); Blood Urine Negative (Negative); Glucose Urine UA Negative (Normal); Ketones Urine Negative (Negative); Leukocyte Esterase Urine Negative (Negative); Nitrate Urine Negative (Negative); Protein Urine 2+ (Negative); Specific Gravity, Urine 1.016 (1.005-1.030); Urine Appearance Cloudy (CLEAR); Urine Color Yellow (Yellow); pH Urine 5.5 (5-7)
[2024-08-25 10:51] LABS: Add Urine Microscopic? YES; Bacteria Urine None Seen /hpf; Hyaline Casts Urine 22.33 /lpf; RBC Urine 21-50 /hpf (0-2); Squamous Epithelial Cell Urine 21-50 /hpf (0-5); WBC Urine 0-5 /hpf (0-5)
[2024-08-25] MEDS: iohexol 350 mg/mL 500 mL Btl (per mL) IV (11:12)
[2024-08-25 11:20] LABS: UA Slide Review UA Slide Review Perf
[2024-08-25 11:23] LABS: Add Urine Culture? No; Red Blood Cell Casts Urine 0-4 /lpf
[2024-08-25 12:00] VITALS: PULSE 58; O2SAT 98
[2024-08-25 12:32] VITALS: BP 114/59; PULSE 56; O2SAT 97
[2024-08-25 13:19] VITALS: BP 143/87; PULSE 59; O2SAT 98
== END 2024-08-25 13:21 | disposition home or self-care (01) ==
PROVIDERS: Emergency Medicine; Emergency Provider Student in an Organized Health Care Education/Training Program; PCP Nurse Practitioner Family
DX: K57.92 Diverticulitis of intestine, part unspecified, without perforation or abscess without bleeding (principal); Z79.82 Long term (current) use of aspirin; F17.210 Nicotine dependence, cigarettes, uncomplicated
CPT/HCPCS: 74177; 80053; 81001; 83690; 85025; 96361; 96374; 99285; J2405; J7040

== ENCOUNTER 2024-10-21 11:36 | Outpatient (CLI) | payer MEDICARE, SELFPAY ==
--- NOTE | 2024-10-21 11:44 | XR_ITS ---
WS: [id number] XR foot LT min 3V* [id number] REASON FOR EXAM: PAIN IN LEFT FOOT FINDINGS: No fracture or focal bone lesion. No periosteal reaction or bone erosion. Mild joint space narrowing with mild subchondral sclerosis in the DIP and PIP joints of the toes. The remainder of the joint spaces in the forefoot, midfoot, and hindfoot are intact and relatively well preserved. 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 No acute bone or joint abnormality.
== END 2024-10-21 11:37 | disposition home or self-care (01) ==
PROVIDERS: PCP Nurse Practitioner Family; Visit Provider Nurse Practitioner Family
DX: I25.10 Atherosclerotic heart disease of native coronary artery without angina pectoris (principal); I10 Essential (primary) hypertension; E78.5 Hyperlipidemia, unspecified; Z79.02 Long term (current) use of antithrombotics/antiplatelets; Z79.82 Long term (current) use of aspirin; F17.210 Nicotine dependence, cigarettes, uncomplicated; I25.2 Old myocardial infarction
CPT/HCPCS: 73630; 99213